=== PATIENT | male | born 1955 | race African-American/Black ===

== ENCOUNTER 2016-12-04 14:05 | Inpatient (IN) | payer MEDICARE, MEDICAID ==
[2016-12-04 14:35] LABS: #Basophils 0.1 thou/uL (0.0-0.2); #Eosinphils 0.1 thou/uL (0.0-0.7); #Lymphocytes 1.2 thou/uL (1.20-3.40); #Monocytes 0.5 thou/uL (0.11-0.59); #Neutrophils 3.5 thou/uL (1.40-6.50); %Basophils 1.8 % (0.0-1.0); %Eosinophils 1.4 % (0.0-10.0); %Lymphocytes 22.6 % (21.0-51.0); %Monocytes 9.3 % (0.0-10.0); Hematocrit 53.7 % (42.0-52.0); Mean Platelet Volume 8.7 fL (7.4-10.4); Red Blood Cell (RBC) Count 6.15 mill/uL (4.70-6.10); White Blood Cell (WBC) Count 5.5 thou/uL (4.8-10.8)
--- NOTE | 2016-12-04 14:38 | RAD ---
CHEST ONE VIEW: HISTORY: Chest pain. COMPARISON: 06/01/2014 FINDINGS: The cardiac silhouette is magnified by projection. The lungs remain hyperinflated with chronic pare nchymal and pleural scarring. The mediastinum is midline with aortic calcification. No lobar conso lidation or pneumothorax is apparent. The tracheostomy appliance is no longer visible. IMPRESSION: Chronic obstructive pulmonary disease and other chronic type findings appear stable. POS: [facility]
[2016-12-04 15:01] LABS: ALT (SGPT) 44 U/L (8-55); AST (SGOT) 39 U/L (5-34); Alkaline Phosphatase 116 U/L (40-150); Anion Gap 14 mmol/L (10-20); BUN (Urea Nitrogen) 16 mg/dL (8.4-25.7); Bilirubin, Total 0.8 mg/dL (0.2-1.2); CK (CPK) 44 U/L (30-200); Calc. Creatinine Clearance 0 mL/min (70-130); Calcium 10.2 mg/dL (7.8-10.44); Carbon Dioxide 25 mmol/L (22-29); Chloride 99 mmol/L (98-107); Estimated GFR-MDRD Greater than 90; Globulin 3.8 g/dL (2.4-3.5); Lipase 79 U/L (8-78); Protein, Total 7.3 g/dL (6.0-8.3)
[2016-12-04 15:05] LABS: Troponin I Less than 0.010 ng/mL (< 0.028)
[2016-12-04] MEDS ORDERED: ISOVUE-370 76%-LOCM 1 ML ONE (15:55)
[2016-12-04] MEDS ORDERED: Mag-Al 1200 mg/1200 mg/30 ML UDCUP ONE (16:02)
[2016-12-04] MEDS ORDERED: Famotidine 20 MG TAB ONE (16:02)
[2016-12-04] MEDS ORDERED: Lidocaine Viscous Sol 2% 15 ml UD Cup ONE (16:02)
--- NOTE | 2016-12-04 17:01 | CT ---
CT ABDOMEN AND PELVIS WITH IV CONTRAST: Date: 12/04/16 HISTORY: 61-year-old male with abdominal pain, epigastric pain. FINDINGS: There are calcified pleural plaques on the right, also seen on CT chest of 06/18/10. The liver demon strates decreased attenuation compared to the spleen consistent with fatty infiltration. A 9.0 mm hy perenhancing focus in the upper aspect of the right lobe of the liver is stable as well since the CT chest of 06/18/10. There is suggestion of multiple low density foci in the spleen which may be due to imaging in the la te arterial phase prior to equilibration and may be due to residual tiger striping. There are calcified gallstones. The pancreas, adrenal glands, and kidneys are normal. No free air, free fluid, or lymphadenopathy seen. There are vascular calcification without evidence of aneurysmal dilatation of the abdominal aorta. The small bowel loops are not abnormally dilated. There is fecal material in the colon and rectum. N o acute osseous abnormalities are seen. There is suggestion of old right iliac bone fracture. A normal appearing appendix is present. IMPRESSION: 1. Cholelithiasis. 2. Calcified right pleural plaques, stable since 2010. 3. Fatty liver. 4. Low density lesions versus normal enhancement pattern in spleen. Further evaluation with ultraso und would be helpful. 5. Cholelithiasis. 6. Constipation. POS: [facility]IYAD
[2016-12-04 18:03] LABS: Bilirubin Negative (Negative); Blood, Urine Negative (Negative); Glucose, Urine (Dipstick) 500 mg/dL (Negative); Ketone, Urine 15 mg/dL (Negative); Protein, Urine (Dipstick) Negative (Neg-Trace)
[2016-12-04 18:04] LABS: Amphetamine Not Detected (NotDetected); Methadone Not Detected (NotDetected); Methamphetamine Not Detected (NotDetected); Nitrite Negative (Negative)
[2016-12-04] MEDS ORDERED: cloNIDine HCl 0.1 MG TAB ONE (18:18)
--- NOTE | 2016-12-04 20:20 | HP ---
PRIMARY CARE PROVIDER: Dr. Rose at [facility]. CHIEF COMPLAINT: Referred to the [facility] Service for chest pain, rule out myocardial infa rction. HISTORY OF PRESENT ILLNESS: The patient had pain in his upper abdomen for 2 weeks present all the t jayant, worse with food. He has had nausea with emesis multiple times. No blood in the emesis, no kelechi ck tarry stools. PAST MEDICAL HISTORY: Pertinent for diabetes mellitus type 2, insulin-dependent, hypertension, COPD secondary to tobacco abuse, ongoing tobacco dependence, diabetes, history of CVA. PAST SURGICAL HISTORY: Tracheostomy post-CVA has been removed, history of cervical fracture. ALLERGIES: None. MEDICATIONS: The patient does not remember his medicines; however he brought his medicine list in w ith him, atorvastatin 10 mg a day, Cymbalta 30 mg a day, gabapentin 600 mg 3 times a day, glipizide 10 twice a day, insulin lispro 7 units subcu 3 times a day before meals, [facility], lisinopril 5 mg a day, metformin 1000 mg a day. ALLERGIES: No known drug allergies. SOCIAL HISTORY: Lives with daughter. Smokes less than a pack a day, occasional alcohol. FULL code status. Daughter, next of kin. FAMILY HISTORY: Positive for hypertension, diabetes, strokes, coronary artery disease and cancer. REVIEW OF SYSTEMS: General: He has frequent headaches for which he takes [id number] medicines. No dizziness or fainting, no fever or chills. Eyes: No double vision, blurred vision, flashing lights. ENT: No ear pain or drainage. No nasal bleeding. No trouble swallowing. Cardiac: No chest pain, orthopnea or paroxysmal nocturnal dyspnea. Respirations: No cough, wheezing or asthma. Gastrointestinal: See present illness. Genitourinary: No hematuria, dysuria. Musculoskeletal: N o pain or swelling in his legs. Neurologic: He states he has peripheral neuropathy, takes Cymbalta and gabapentin for that. Psychiatric: No anxiety, depression. Skin: No bruises, bleeding or emma h. Heme/Lymph: No tender or swollen lymph nodes in axilla, inguinal, or cervical area. PHYSICAL EXAMINATION: VITAL SIGNS: Blood pressure 146/99, pulse 86, respirations 14, pulse ox 99 on room air. HEENT: Pupils equal, round, and reactive to light. Extraocular movements are intact. Sclerae whit e. Tympanic membranes are clear. Nose clear. Throat is clear. He has only three or four teeth. NECK: Supple, without jugular venous distention. No adenopathy or thyromegaly. CHEST: Clear to auscultation and percussion. HEART: Regular rate and rhythm. First and second heart sounds are clear. There are no murmurs or gallops. ABDOMEN: Remarkably tender in the right upper quadrant. Bowel sounds are present. There is no pal pable mass or hepatosplenomegaly. There are no bruits. EXTREMITIES: Reveal no cyanosis, clubbing or edema. PULSES: Carotid, radial, femoral pulses intact. Pedal pulses diminished. SKIN: Warm and dry without bruises or rash. HEME/LYMPH: Reveals no tender or swollen lymph nodes in axilla, inguinal or cervical area. NEUROLOGICAL: Cranial nerves II-XII are intact. Deep tendon reflexes markedly diminished in his ar ms and absent in his legs. Sensation markedly diminished below the knee. LABORATORY AND X-RAY FINDINGS: Chest x-ray, no cardiomegaly, CHF or infiltrate. EKG no acute ST-T abnormality, sinus rhythm, both reviewed by me. LABORATORY DATA: Comprehensive metabolic profile, blood sugar 431, AST 39. Sodium 133, otherwise n ormal. Cardiac enzymes normal x1. CBC: White count 5.5, hemoglobin 17.4, platelet count 172,000. Drug screen is negative. ADMITTING DIAGNOSES: 1. Abdominal pain most consistent with cholecystitis. 2. Diabetes mellitus type 2, uncontrolled. 3. Hypertension. 4. Dyslipidemia. 5. History of chronic obstructive pulmonary disease. 6. Tobacco abuse. 7. Pain. PLAN: 1. Put in hospital on the medical service on IV fluids. 2. Morphine sulfate for pain. 3. Abdominal ultrasound. 4. Accu-Cheks and sliding scale, selected home medicines. Reevaluate when abdominal ultrasound is available.
[2016-12-04 21:12] LABS: Troponin I Less than 0.010 ng/mL (< 0.028)
[2016-12-04] MEDS ORDERED: Dextrose 5% in Water 1,000 ML IV PRN ×2 (21:37→23:20)
[2016-12-04] MEDS ORDERED: Labetalol HCl 100 MG/20 ML VIAL SLOW IVP PRN (21:37)
[2016-12-04] MEDS ORDERED: Dextrose 50% Abboject 50 ML SYRINGE SLOW IVP PRN (21:37)
[2016-12-04] MEDS ORDERED: Ondansetron ODT 4 MG TAB SL PRN (21:37)
[2016-12-04] MEDS ORDERED: Ondansetron HCl/PF 4 MG/2 ML Vial IVP PRN ×2 (21:37)
[2016-12-04] MEDS ORDERED: Acetaminophen 325 MG TAB PO PRN (21:37)
[2016-12-04] MEDS ORDERED: Zolpidem Tartrate 5 MG TAB PO PRN (21:37)
[2016-12-04] MEDS ORDERED: Famotidine/PF 20 mg/2ml Vial SLOW IVP PRN (21:37)
[2016-12-04] MEDS ORDERED: Famotidine/PF 20 mg/2ml Vial SLOW IVP SCH (23:15)
[2016-12-04] MEDS ORDERED: Dextrose 50% Abboject 50 ML SYRINGE IVP PRN (23:20)
[2016-12-04] MEDS ORDERED: HumaLOG 300 UNITS/3 ML VIAL SC PRN (23:20)
[2016-12-04] MEDS ORDERED: Atorvastatin Calcium 10 MG TAB PO SCH (23:30)
[2016-12-04] MEDS ORDERED: Sodium Chloride 0.9% 1,000 ML IV SCH (23:30)
[2016-12-05 00:08] LABS: Troponin I Less than 0.010 ng/mL (< 0.028)
[2016-12-05] MEDS: Sodium Chloride 0.9% 1,000 ML IV SCH ×2 (00:50→12:00)
[2016-12-05 05:20] LABS: #Basophils 0.1 thou/uL (0.0-0.2); #Eosinphils 0.1 thou/uL (0.0-0.7); #Lymphocytes 1.5 thou/uL (1.20-3.40); #Monocytes 0.4 thou/uL (0.11-0.59); #Neutrophils 2.4 thou/uL (1.40-6.50); %Basophils 1.3 % (0.0-1.0); %Eosinophils 1.5 % (0.0-10.0); %Lymphocytes 33.6 % (21.0-51.0); %Monocytes 8.8 % (0.0-10.0); Hematocrit 51.7 % (42.0-52.0); Mean Platelet Volume 9.1 fL (7.4-10.4); Red Blood Cell (RBC) Count 5.92 mill/uL (4.70-6.10); White Blood Cell (WBC) Count 4.4 thou/uL (4.8-10.8)
[2016-12-05] MEDS: HumaLOG 300 UNITS/3 ML VIAL SC PRN ×4 (05:25→20:15)
[2016-12-05 05:37] LABS: Anion Gap 12 mmol/L (10-20); BUN (Urea Nitrogen) 13 mg/dL (8.4-25.7); Calc. Creatinine Clearance 87 mL/min (70-130); Carbon Dioxide 26 mmol/L (22-29); Chloride 100 mmol/L (98-107); Estimated GFR-MDRD Greater than 90
--- NOTE | 2016-12-05 07:16 | PDOC.PN ---
- Subjective Encounter Start Date: 12/05/16 Encounter Start Time: 07:15 Subjective: Abdominal pain still severe -: No f/c -: No nausea currently - Objective Resuscitation Status: Resuscitation Status FULL:Full Resuscitation MAR Reviewed: Yes Vital Signs & Weight: Vital Signs (12 hours) Temp Pulse Resp BP Pulse Ox 12/05/16 04:06 98.2 F 82 18 152/98 H 99 12/05/16 00:05 98.7 F 89 20 159/91 H 95 12/04/16 21:37 95 12/04/16 21:20 98.1 F 82 18 157/100 H 96 Weight Weight 126 lb 8 oz I&O: 12/04/16 12/05/16 12/06/16 06:59 06:59 06:59 Intake Total 1150 Output Total 1400 Balance -250 Result Diagrams: 12/05/16 04:52 12/05/16 04:52 Additional Labs: Accuchecks 12/05/16 12/04/16 12/04/16 05:24 21:35 20:20 POC Glucose 290 H 387 H 225 H Phys Exam - Physical Examination Constitutional: NAD HEENT: moist MMs, sclera anicteric Neck: no nodes, no JVD Respiratory: no wheezing, no rales, no rhonchi Cardiovascular: RRR, no significant murmur generalized tenderness, no rebound, hyposonic BS Musculoskeletal: pulses present Neurological: non-focal Lymphatic: no nodes Psychiatric: normal affect Skin: no rash, normal turgor Dx/Plan (1) Abdominal pain Code(s): R10.9 - UNSPECIFIED ABDOMINAL PAIN Status: Acute - Plan Abdominal pain likely 2/2 Symptomatic Cholelithiasis * serial troponins unremarkable * CT a/p: cholelithiasis * CXR: no acute issues * Lipase: only minimally elevated * check US: pending * prn analagesics and anti-emetics * will request surgery consult to discuss possibility of cholecystectomy * check labs in AM
[2016-12-05] MEDS ORDERED: Famotidine/PF 20 mg/2ml Vial SLOW IVP SCH (09:00)
[2016-12-05] MEDS: Lisinopril 10 MG TAB PO SCH (09:42)
--- NOTE | 2016-12-05 09:52 | ULT ---
ULTRASOUND OF ABDOMEN: Date: 12/05/16 HISTORY: Epigastric pain. FINDINGS: The liver demonstrates homogeneous echotexture without focal mass or intrahepatic ductal dilatation. The spleen is normal, measuring 8.5 cm in length. There are multiple shadowing gallstones and sludg e in the gallbladder without gallbladder wall thickening or pericholecystic fluid. The common duct m easures 4.0 mm in diameter. The kidneys, pancreas, and visualized portions of the aorta and IVC are unremarkable. No free fluid is seen. IMPRESSION: Cholelithiasis. POS: [facility]IYAD
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
[2016-12-05] MEDS: Atorvastatin Calcium 10 MG TAB PO SCH (20:08)
[2016-12-05] MEDS ORDERED: Atorvastatin Calcium 10 MG TAB PO SCH (21:00)
[2016-12-06] MEDS: Sodium Chloride 0.9% 1,000 ML IV SCH ×4 (00:25→20:39)
[2016-12-06 05:32] LABS: #Eosinphils 0.1 thou/uL (0.0-0.7); #Lymphocytes 1.1 thou/uL (1.20-3.40); #Monocytes 0.4 thou/uL (0.11-0.59); #Neutrophils 2.7 thou/uL (1.40-6.50); %Basophils 1.1 % (0.0-1.0); %Eosinophils 1.6 % (0.0-10.0); %Lymphocytes 24.6 % (21.0-51.0); %Monocytes 9.9 % (0.0-10.0); Hematocrit 51.8 % (42.0-52.0); Mean Platelet Volume 9.4 fL (7.4-10.4); Red Blood Cell (RBC) Count 5.89 mill/uL (4.70-6.10); White Blood Cell (WBC) Count 4.3 thou/uL (4.8-10.8)
[2016-12-06 05:49] LABS: Anion Gap 12 mmol/L (10-20); BUN (Urea Nitrogen) 13 mg/dL (8.4-25.7); Calc. Creatinine Clearance 96 mL/min (70-130); Calcium 10.2 mg/dL (7.8-10.44); Carbon Dioxide 24 mmol/L (22-29); Chloride 105 mmol/L (98-107); Estimated GFR-MDRD Greater than 90; Magnesium 1.6 mg/dL (1.6-2.6)
[2016-12-06] MEDS ORDERED: Bupivacaine HCl 0.5%/Epinephrine 1:200,000/PF 30 ml Vial ONE (08:22)
[2016-12-06 08:44] LABS: ALT (SGPT) 40 U/L (8-55); AST (SGOT) 48 U/L (5-34); Alkaline Phosphatase 118 U/L (40-150); Bilirubin, Direct 0.3 mg/dL (0.1-0.3); Bilirubin, Total 0.6 mg/dL (0.2-1.2); Protein, Total 6.9 g/dL (6.0-8.3)
[2016-12-06] MEDS ORDERED: Fentanyl 100 MCG/2 ML VIAL ONE (08:50)
[2016-12-06] MEDS ORDERED: Ondansetron HCl/PF 4 MG/2 ML Vial ONE (09:15)
[2016-12-06] MEDS ORDERED: Lidocaine 2% PF 10 ML AMP (For Epidural Use) ONE (09:15)
[2016-12-06] MEDS ORDERED: Glycopyrrolate 0.2 MG/ML 5 ML SYRINGE ONE (09:15)
[2016-12-06] MEDS ORDERED: Propofol 200 MG/20 ML VIAL ONE (09:15)
[2016-12-06] MEDS ORDERED: cloNIDine HCl 0.1 MG TAB PO PRN (10:01)
--- NOTE | 2016-12-06 10:50 | OP ---
DATE OF OPERATION: 12/06/2016 PREOPERATIVE DIAGNOSES: Acute cholecystitis and cholelithiasis. POSTOPERATIVE DIAGNOSES: Acute cholecystitis and cholelithiasis. PROCEDURE PERFORMED: Laparoscopic cholecystectomy. SURGEON: Rickie Severino D.O. ANESTHESIA: General endotracheal. ESTIMATED BLOOD LOSS: 10 mL. FLUIDS GIVEN: 1000 mL crystalloids. SPONGE AND INSTRUMENT COUNT: Certified as correct x2. COMPLICATIONS: None apparent at time of operation. INDICATIONS FOR PROCEDURE: This is a 61-year-old man who presented with postprandial epigastric abd ominal pain. Clinical and radiographic examination was consistent with acute cholecystitis with cho lelithiasis for which patient was brought to the operating room for laparoscopic cholecystectomy. Findings are consistent with gallbladder in the usual anatomic location partially encased by omental adhesions. DESCRIPTION OF PROCEDURE: Informed consent obtained from the patient who was brought to the operati ng room and placed in supine position. Following general anesthesia, abdomen is sterilely prepped a nd draped in the usual fashion. The skin below the umbilicus was infiltrated with 0.25% Marcaine wi th epinephrine. A small curvilinear infraumbilical incision is made using an 11 scalpel. An umbili jimmie stalk was grasped with Jaquelin's and elevated. Veress needle was inserted through this incision and placed in the peritoneal cavity through which the abdomen was insufflated with 2.5 liters of CO2 gas. Intra-abdominal pressure noted at 1 mmHg. Following abdominal insufflation, Veress needle wa s removed and a 5 mm trocar was introduced into the peritoneal cavity using the Visiport under lapar oscopy. Laparoscopy further reveals gallbladder in the usual anatomic location partially encased by omental adhesions. Under direct laparoscopy, a 12 mm epigastric and two 5 mm right lateral subcost al ports were placed after the overlying skin was infiltrated with 0.25% Marcaine with epinephrine a nd appropriate incisions made. The patient was placed in a reverse Trendelenburg position, rotated to his left. I introduced a Prestige grasper through the right lateral subcostal port grasping the fundus of the gallbladder which was elevated cephalad. Omental adhesions were then taken down from the gallbladder using [place] dissector with cautery. A second Prestige grasper introduced through the right medial subcostal port grasping the Cain's pouch which was retracted laterally. Cysti c duct was carefully dissected free from surrounding structures and divided between clips. Two clip s were applied proximally and one clip at the junction of the cystic duct and gallbladder. Cystic a rtery was also dissected free from surrounding structures and divided between clips in a similar fas hion. Gallbladder itself was removed from the liver bed using thermal cautery with good hemostasis. Gallbladder is delivered of the abdominal cavity using an EndoCatch. Operative site was inspected for good hemostasis. Clips remained in place, no bile stains noted. Finding no other pathology, l aparoscopy was terminated. Fascia of the epigastric port site was closed using 0 Vicryl suture and Endo closure device under laparoscopy. The abdomen was desufflated. All ports and instruments yuliya yesy and accounted for. Skin incisions were closed using 4-0 Monocryl suture in subcuticular fashion . Dermabond was applied to the incisions. The patient tolerated the operation without any apparent complication and was returned to the recovery room in satisfactory condition.
[2016-12-06] MEDS: Lisinopril 10 MG TAB PO SCH (11:23)
[2016-12-06] MEDS: Ketorolac Tromethamine 30 MG/ML VIAL IVP SCH ×3 (11:23→23:30)
[2016-12-06] MEDS: Acetaminophen 500 MG TAB PO SCH ×3 (11:27→23:30)
[2016-12-06] MEDS: traMADol HCl 50 MG TAB PO PRN ×2 (14:25→20:33)
[2016-12-06] MEDS: Gabapentin 300 MG CAP PO SCH ×2 (14:27→20:33)
--- NOTE | 2016-12-06 15:21 | PDOC.PN ---
- Subjective Encounter Start Date: 12/06/16 Encounter Start Time: 15:20 Subjective: s/p lap britney. ate food and no nausea.no Abd pain -: feels better - Objective Resuscitation Status: Resuscitation Status FULL:Full Resuscitation MAR Reviewed: Yes Vital Signs & Weight: Vital Signs (12 hours) Temp Pulse Resp BP BP Pulse Ox 12/06/16 12:00 97.3 F L 83 12 150/97 H 98 12/06/16 11:23 181/106 H 12/06/16 08:20 97.3 F L 83 12 97 12/06/16 08:00 97.7 F 85 16 162/100 H 97 12/06/16 05:03 82 130/71 12/06/16 03:45 98.1 F 90 16 141/91 H 98 Weight Admit Weight 126 lb 5 oz Weight 127 lb 8 oz I&O: 12/05/16 12/06/16 12/07/16 06:59 06:59 06:59 Intake Total 1150 3687 250 Output Total 1400 2050 Balance -250 1637 250 Result Diagrams: 12/06/16 04:54 12/06/16 04:54 Additional Labs: Accuchecks 12/06/16 12/06/16 12/05/16 11:18 05:41 20:13 POC Glucose 229 H 242 H 399 H 12/05/16 17:01 POC Glucose 327 H Laboratory Tests 12/04/16 12/04/16 12/04/16 14:26 14:26 20:34 Total Bilirubin 0.8 AST 39 H ALT 44 Alkaline Phosphatase 116 Troponin I Less than 0.010 Less than 0.010 Lipase 79 H 12/04/16 12/06/16 23:33 04:54 Total Bilirubin 0.6 AST 48 H ALT 40 Alkaline Phosphatase 118 Troponin I Less than 0.010 Lipase Phys Exam - Physical Examination Constitutional: NAD HEENT: PERRLA, moist MMs, sclera anicteric, oral pharynx no lesions, 2+ tonsils Neck: no nodes, no JVD, supple, full ROM Respiratory: no wheezing, no rales, no rhonchi, clear to auscultation bilateral Cardiovascular: RRR, no significant murmur Gastrointestinal: soft, non-tender, positive bowel sounds mild distension. surgical site w/o oozing Musculoskeletal: no edema, pulses present Neurological: non-focal, normal sensation, moves all 4 limbs Dx/Plan (1) Acute cholecystitis Code(s): K81.0 - ACUTE CHOLECYSTITIS Status: Acute Comment: s/p lap britney (2) LFTs abnormal Code(s): R79.89 - OTHER SPECIFIED ABNORMAL FINDINGS OF BLOOD CHEMISTRY Status : Acute Comment: Improving. secondary to cholelithaisis (3) Abdominal pain Code(s): R10.9 - UNSPECIFIED ABDOMINAL PAIN Status: Acute - Plan out of bed/ambulate, DVT proph w/SCDs supportive care post-op.ambulate .encourage Po intake -: likley home tomorrow if cleared by GS team.apprecviate input. -: LFt improving. -: restart home meds. Hemodynamically stable. * . Review of Systems - Medications/Allergies Allergies/Adverse Reactions: Allergies Allergy/AdvReac Type Severity Reaction Status Date / Time No Known Drug Allergies Allergy Verified 12/04/16 22:10 Medications: Current Medications Acetaminophen (Tylenol) 1,000 mg PO Q6H [facility] Last Admin: 12/06/16 11:27 Dose: 1,000 mg Atorvastatin Calcium (Lipitor) 10 mg PO HS [facility] Last Admin: 12/05/16 20:08 Dose: 10 mg Bupropion HCl (Wellbutrin Xl) 150 mg PO DAILY [facility] Citalopram Hydrobromide (Celexa) 20 mg PO DAILY [facility] Clonidine HCl (Catapres) 0.1 mg PO Q4H PRN PRN Reason: SBP>160 Dextrose/Water (Dextrose 50%) 25 gm SLOW IVP PRN PRN PRN Reason: Hypoglycemia Famotidine (Pepcid) 20 mg SLOW IVP Q12HR PRN PRN Reason: Heartburn or Indigestion Gabapentin (Neurontin) 600 mg PO TID [facility] Last Admin: 12/06/16 14:27 Dose: 600 mg Glucagon (Glucagon) 1 mg IM PRN PRN PRN Reason: Hypoglycemia Hydralazine HCl (Apresoline) 10 mg SLOW IVP Q4H PRN PRN Reason: Systolic BP > 170 Dextrose/Water (D5w) 1,000 mls @ 0 mls/hr IV .Q0M PRN; As Directed PRN Reason: Hypoglycemia Sodium Chloride (Normal Saline 0.9%) 1,000 mls @ 75 mls/hr IV .[id number] [facility] Last Admin: 12/06/16 12:17 Dose: Not Given Insulin Human Lispro (Humalog) 0 units SC .MODERATE SLIDING SC PRN PRN Reason: Moderate Correctional Scale Last Admin: 12/05/16 20:15 Dose: 10 unit Ketorolac Tromethamine (Toradol) 15 mg IVP Q6HR [facility] Stop: 12/11/16 12:01 Last Admin: 12/06/16 11:23 Dose: 15 mg Labetalol HCl (Normodyne) 20 mg SLOW IVP Q4H PRN PRN Reason: Systolic BP > 180 Lisinopril (Zestril) 10 mg PO DAILY [facility] Last Admin: 12/06/16 11:23 Dose: 10 mg Ondansetron HCl (Zofran) 4 mg IVP Q6H PRN PRN Reason: Nausea/Vomiting Sodium Chloride (Flush - Normal Saline) 10 ml IVF Q12HR [facility] Last Admin: 12/06/16 11:27 Dose: 10 ml Sodium Chloride (Flush - Normal Saline) 10 ml IVF PRN PRN PRN Reason: Saline Flush Tramadol HCl (Ultram) 50 mg PO Q6H PRN PRN Reason: Moderate Pain (4-6) Tramadol HCl (Ultram) 100 mg PO Q6H PRN PRN Reason: Severe Pain (7-10) Last Admin: 12/06/16 14:25 Dose: 100 mg Zolpidem Tartrate (Ambien) 5 mg PO HSPRN PRN PRN Reason: Insomnia
[2016-12-06] MEDS: HumaLOG 300 UNITS/3 ML VIAL SC PRN ×2 (17:12→21:35)
[2016-12-06] MEDS: Atorvastatin Calcium 10 MG TAB PO SCH (20:33)
[2016-12-07] MEDS: traMADol HCl 50 MG TAB PO PRN ×3 (03:05→22:40)
[2016-12-07] MEDS ORDERED: Morphine Sulfate 2 MG/ML SYRINGE SLOW IVP SCH (03:30)
[2016-12-07 04:46] LABS: #Lymphocytes 0.9 thou/uL (1.20-3.40); #Monocytes 0.5 thou/uL (0.11-0.59); %Basophils 0.5 % (0.0-1.0); %Eosinophils 1.1 % (0.0-10.0); %Lymphocytes 20.3 % (21.0-51.0); %Monocytes 11.5 % (0.0-10.0); Hematocrit 49.3 % (42.0-52.0); Red Blood Cell (RBC) Count 5.55 mill/uL (4.70-6.10); White Blood Cell (WBC) Count 4.4 thou/uL (4.8-10.8)
[2016-12-07 05:09] LABS: Anion Gap 12 mmol/L (10-20); BUN (Urea Nitrogen) 17 mg/dL (8.4-25.7); Calc. Creatinine Clearance 83 mL/min (70-130); Calcium 9.4 mg/dL (7.8-10.44); Carbon Dioxide 23 mmol/L (22-29); Chloride 103 mmol/L (98-107); Estimated GFR-MDRD Greater than 90
[2016-12-07 05:11] LABS: ALT (SGPT) 44 U/L (8-55); AST (SGOT) 61 U/L (5-34); Alkaline Phosphatase 115 U/L (40-150); Bilirubin, Direct 0.3 mg/dL (0.1-0.3); Bilirubin, Total 0.6 mg/dL (0.2-1.2); Lipase 89 U/L (8-78); Protein, Total 6.3 g/dL (6.0-8.3)
[2016-12-07] MEDS: Ketorolac Tromethamine 30 MG/ML VIAL IVP SCH (06:23)
[2016-12-07] MEDS: HumaLOG 300 UNITS/3 ML VIAL SC PRN (06:24)
[2016-12-07] MEDS: Acetaminophen 500 MG TAB PO SCH ×4 (06:24→22:37)
[2016-12-07] MEDS ORDERED: Dextrose 5% in Water 1,000 ML IV PRN (07:10)
[2016-12-07] MEDS ORDERED: Dextrose 50% Abboject 50 ML SYRINGE SLOW IVP PRN (07:10)
[2016-12-07] MEDS ORDERED: Morphine Sulfate 2 MG/ML SYRINGE SLOW IVP PRN (08:36)
[2016-12-07] MEDS: Gabapentin 300 MG CAP PO SCH ×3 (09:37→20:31)
[2016-12-07] MEDS: Bupropion 150 MG XL TAB PO SCH (09:37)
[2016-12-07] MEDS: Lisinopril 10 MG TAB PO SCH (09:37)
[2016-12-07] MEDS ORDERED: Bisacodyl 10 MG SUPP PR PRN (09:44)
[2016-12-07] MEDS ORDERED: Docusate 100 MG CAP PO PRN (09:44)
[2016-12-07 10:42] VITALS: BMI 19.5
--- NOTE | 2016-12-07 11:38 | RAD ---
ABDOMEN ONE VIEW: History: Status post cholecystectomy. Evaluate for hematoma versus ileus. Comparison: None. Correlation: Abdomen and pelvis CT 12-04-16. FINDINGS: Re-demonstration of fecal material and air in a nondistended, nondilated colon. No evidence of small bowel distention or dilatation. Air filled mildly prominent stomach is noted in the supine projecti on. No evidence of pneumoperitoneum. Surgical clips, compatible with previous cholecystectomy are id entified. Phleboliths are noted. Increased density in the pelvis is presumed to be due to urine filled urinary bladder. Correlate cli nically. IMPRESSION: No specific bowel gas pattern. POS: [facility]
[2016-12-07] MEDS: Insulin Regular 300 UNITS/3 ML VIAL SC PRN ×3 (11:46→20:32)
[2016-12-07] MEDS: Milk Of Magnesia 30 ML UDCUP PO PRN (11:47)
--- NOTE | 2016-12-07 12:05 | PDOC.PN ---
- Subjective Encounter Start Date: 12/07/16 Encounter Start Time: 12:03 Subjective: c/o 10/10 abdominal pain since last night.not passing gas since this mornin -: no nausea/vomiting. ATE good. -: reports that he has BM once a month on a normal basis - Objective Resuscitation Status: Resuscitation Status FULL:Full Resuscitation MAR Reviewed: Yes Vital Signs & Weight: Vital Signs (12 hours) Temp Pulse Resp BP BP BP Pulse Ox 12/07/16 11:58 97.4 F L 80 18 142/95 H 100 12/07/16 09:37 120/84 12/07/16 08:00 97.5 F L 87 16 99 12/07/16 07:45 97.5 F L 87 16 120/84 99 12/07/16 03:25 97.8 F 86 14 149/99 H 96 Weight Admit Weight 126 lb 5 oz Weight 131 lb 15.993 oz I&O: 12/06/16 12/07/16 12/08/16 06:59 06:59 06:59 Intake Total 3687 4426 250 Output Total 2050 550 Balance 1637 3876 250 Result Diagrams: 12/07/16 04:14 12/07/16 04:14 Additional Labs: Accuchecks 12/07/16 12/07/16 12/06/16 11:11 05:49 20:43 POC Glucose 280 H 262 H 257 H 12/06/16 16:46 POC Glucose 223 H Laboratory Tests 12/04/16 12/06/16 12/07/16 14:26 04:54 04:14 Total Bilirubin 0.8 0.6 0.6 AST 39 H 48 H 61 H ALT 44 40 44 Alkaline Phosphatase 116 118 115 Lipase 79 H 89 H Radiology Reviewed by me: Yes (KUB-no obstruction) Phys Exam - Physical Examination Constitutional: NAD HEENT: PERRLA, moist MMs, sclera anicteric, oral pharynx no lesions Neck: no nodes, no JVD, supple, full ROM Respiratory: no wheezing, no rales, no rhonchi Cardiovascular: RRR, no significant murmur Gastrointestinal: soft, positive bowel sounds swelling at one of the surgical sites w overt bleeding Musculoskeletal: no edema, pulses present Neurological: non-focal, normal sensation, moves all 4 limbs Psychiatric: normal affect, A&O x 3 Skin: no rash Dx/Plan (1) Surgical site hematoma Status: Acute (2) Acute cholecystitis Code(s): K81.0 - ACUTE CHOLECYSTITIS Status: Acute Comment: s/p lap britney (3) LFTs abnormal Code(s): R79.89 - OTHER SPECIFIED ABNORMAL FINDINGS OF BLOOD CHEMISTRY Status : Acute Comment: Improving. secondary to cholelithaisis (4) Abdominal pain Code(s): R10.9 - UNSPECIFIED ABDOMINAL PAIN Status: Acute - Plan DVT proph w/SCDs KUB negative for Obstruction.will add laxatives.ambulate -: GS notified of hematoma. watch H/H.abdominal binder -: [place] DC home tomorrow if hematoma stable. * . Review of Systems - Review of Systems Constitutional: negative: Fever, Chills, Sweats, Weakness, Malaise, Other Respiratory: negative: Cough, Dry, Shortness of Breath, Hemoptysis, SOB with Excertion, Pleuritic Pain, Sputum, Wheezing Cardiovascular: negative: Chest Pain, Palpitations, Orthopnea, Paroxysmal Noc. Dyspnea, Edema, Light Headedness, Other Gastrointestinal: Abdominal Pain, Other. negative: Nausea, Vomiting, Diarrhea, Constipation, Melena, Hematochezia Genitourinary: negative: Dysuria, Frequency, Incontinence, Hematuria, Retention , Other Musculoskeletal: negative: Neck Pain, Shoulder Pain, Arm Pain, Back Pain, Hand Pain, Leg Pain, Foot Pain, Other Neurological: negative: Weakness, Numbness, Incoordination, Change in Speech, Confusion, Seizures, Other - Medications/Allergies Allergies/Adverse Reactions: Allergies Allergy/AdvReac Type Severity Reaction Status Date / Time No Known Drug Allergies Allergy Verified 12/04/16 22:10 Medications: Current Medications Acetaminophen (Tylenol) 1,000 mg PO Q6H [facility] Last Admin: 12/07/16 11:38 Dose: 1,000 mg Atorvastatin Calcium (Lipitor) 10 mg PO HS [facility] Last Admin: 12/06/16 20:33 Dose: 10 mg Bisacodyl (Dulcolax) 10 mg CA DAILYPRN PRN PRN Reason: Constipation Bupropion HCl (Wellbutrin Xl) 150 mg PO DAILY [facility] Last Admin: 12/07/16 09:37 Dose: 150 mg Citalopram Hydrobromide (Celexa) 20 mg PO DAILY [facility] Last Admin: 12/07/16 09:38 Dose: 20 mg Clonidine HCl (Catapres) 0.1 mg PO Q4H PRN PRN Reason: SBP>160 Dextrose/Water (Dextrose 50%) 25 gm SLOW IVP PRN PRN PRN Reason: Hypoglycemia Docusate Sodium (Colace) 100 mg PO BIDPRN PRN PRN Reason: Constipation Famotidine (Pepcid) 20 mg SLOW IVP Q12HR PRN PRN Reason: Heartburn or Indigestion Gabapentin (Neurontin) 600 mg PO TID [facility] Last Admin: 12/07/16 09:37 Dose: 600 mg Glucagon (Glucagon) 1 mg IM PRN PRN PRN Reason: Hypoglycemia Hydralazine HCl (Apresoline) 10 mg SLOW IVP Q4H PRN PRN Reason: Systolic BP > 170 Sodium Chloride (Normal Saline 0.9%) 1,000 mls @ 75 mls/hr IV .[id number] [facility] Last Admin: 12/06/16 20:39 Dose: 1,000 mls Dextrose/Water (D5w) 1,000 mls @ 0 mls/hr IV .Q0M PRN; As Directed PRN Reason: Hypoglycemia Insulin Human Regular (Humulin R) 0 units SC .AGGRESSIVE SLIDING PRN PRN Reason: Aggressive Sliding Scale Last Admin: 12/07/16 11:46 Dose: 9 unit Labetalol HCl (Normodyne) 20 mg SLOW IVP Q4H PRN PRN Reason: Systolic BP > 180 Lisinopril (Zestril) 10 mg PO DAILY [facility] Last Admin: 12/07/16 09:37 Dose: 10 mg Magnesium Hydroxide (Milk Of Magnesium) 30 ml PO DAILYPRN PRN PRN Reason: Constipation Last Admin: 12/07/16 11:47 Dose: 30 ml Morphine Sulfate (Morphine Sulfate) 2 mg SLOW IVP Q4H PRN PRN Reason: Severe Pain (7-10) Last Admin: 12/07/16 09:34 Dose: 2 mg Ondansetron HCl (Zofran) 4 mg IVP Q6H PRN PRN Reason: Nausea/Vomiting Sodium Chloride (Flush - Normal Saline) 10 ml IVF Q12HR [facility] Last Admin: 12/07/16 10:24 Dose: Not Given Sodium Chloride (Flush - Normal Saline) 10 ml IVF PRN PRN PRN Reason: Saline Flush Tramadol HCl (Ultram) 50 mg PO Q6H PRN PRN Reason: Moderate Pain (4-6) Tramadol HCl (Ultram) 100 mg PO Q6H PRN PRN Reason: Severe Pain (7-10) Last Admin: 12/07/16 03:05 Dose: 100 mg Zolpidem Tartrate (Ambien) 5 mg PO HSPRN PRN PRN Reason: Insomnia
[2016-12-07] MEDS: Sodium Chloride 0.9% 1,000 ML IV SCH (16:17)
[2016-12-07] MEDS: Atorvastatin Calcium 10 MG TAB PO SCH (20:31)
[2016-12-08] MEDS: Insulin Regular 300 UNITS/3 ML VIAL SC PRN ×3 (05:03→18:21)
[2016-12-08] MEDS: Acetaminophen 500 MG TAB PO SCH ×4 (05:04→23:10)
[2016-12-08 05:39] LABS: #Eosinphils 0.1 thou/uL (0.0-0.7); #Monocytes 0.6 thou/uL (0.11-0.59); #Neutrophils 3.1 thou/uL (1.40-6.50); %Basophils 0.6 % (0.0-1.0); %Eosinophils 1.7 % (0.0-10.0); %Lymphocytes 21.5 % (21.0-51.0); %Monocytes 12.1 % (0.0-10.0); Mean Platelet Volume 9.6 fL (7.4-10.4); Red Blood Cell (RBC) Count 5.27 mill/uL (4.70-6.10); White Blood Cell (WBC) Count 4.8 thou/uL (4.8-10.8)
[2016-12-08] MEDS: Sodium Chloride 0.9% 1,000 ML IV SCH ×2 (05:50→17:50)
[2016-12-08] MEDS: Bupropion 150 MG XL TAB PO SCH (07:51)
[2016-12-08] MEDS: Gabapentin 300 MG CAP PO SCH ×3 (07:51→20:20)
[2016-12-08] MEDS: Lisinopril 10 MG TAB PO SCH (07:51)
[2016-12-08] MEDS: traMADol HCl 50 MG TAB PO PRN ×2 (07:52→16:28)
[2016-12-08] MEDS: Senokot S 8.6-50 MG TAB PO SCH ×2 (08:55→20:20)
[2016-12-08] MEDS: Polyethylene Glycol 3350 17 GM Packet PO SCH (08:56)
--- NOTE | 2016-12-08 10:10 | PDOC.PN ---
- Subjective Encounter Start Date: 12/08/16 Encounter Start Time: 10:09 Subjective: still with abdominal pain.no BM yet. -: no more bleeding from surgical site - Objective Resuscitation Status: Resuscitation Status FULL:Full Resuscitation MAR Reviewed: Yes Vital Signs & Weight: Vital Signs (12 hours) Temp Pulse Resp BP BP BP Pulse Ox 12/08/16 08:41 99 12/08/16 08:05 97.8 F 92 12 12/08/16 07:51 120/84 12/08/16 07:17 97.8 F 92 12 136/92 H 98 12/08/16 04:51 97.9 F 91 16 166/102 H 98 Weight Admit Weight 126 lb 5 oz Weight 135 lb 3.2 oz I&O: 12/07/16 12/08/16 12/09/16 06:59 06:59 06:59 Intake Total 4426 1630 Output Total 550 Balance 3876 1630 Result Diagrams: 12/08/16 04:59 12/07/16 04:14 Additional Labs: Accuchecks 12/08/16 12/07/16 12/07/16 05:01 20:31 17:26 POC Glucose 308 H 330 H 280 H 12/07/16 11:11 POC Glucose 280 H Phys Exam - Physical Examination Constitutional: NAD HEENT: PERRLA, moist MMs, sclera anicteric, oral pharynx no lesions Neck: no nodes, no JVD, supple, full ROM Respiratory: no wheezing, no rales, no rhonchi, clear to auscultation bilateral Cardiovascular: RRR, no significant murmur Gastrointestinal: soft, non-tender, positive bowel sounds distension Musculoskeletal: no edema, pulses present Neurological: non-focal, normal sensation, moves all 4 limbs Psychiatric: normal affect, A&O x 3 Skin: no rash Dx/Plan (1) Surgical site hematoma Status: Acute Comment: Stable (2) Acute cholecystitis Code(s): K81.0 - ACUTE CHOLECYSTITIS Status: Acute Comment: s/p lap britney (3) LFTs abnormal Code(s): R79.89 - OTHER SPECIFIED ABNORMAL FINDINGS OF BLOOD CHEMISTRY Status : Acute Comment: Improving. secondary to cholelithaisis (4) Abdominal pain Code(s): R10.9 - UNSPECIFIED ABDOMINAL PAIN Status: Acute - Plan out of bed/ambulate, DVT proph w/SCDs Hemodynamically stable.GS following. -: likley home w HH today if BM . -: no nausea/vomiting.No obstruction on KUB. * . Review of Systems - Review of Systems Constitutional: negative: Fever, Chills, Sweats, Weakness, Malaise, Other Respiratory: negative: Cough, Dry, Shortness of Breath, Hemoptysis, SOB with Excertion, Pleuritic Pain, Sputum, Wheezing Cardiovascular: negative: Chest Pain, Palpitations, Orthopnea, Paroxysmal Noc. Dyspnea, Edema, Light Headedness, Other Gastrointestinal: negative: Nausea, Vomiting, Abdominal Pain, Diarrhea, Constipation, Melena, Hematochezia, Other Genitourinary: negative: Dysuria, Frequency, Incontinence, Hematuria, Retention , Other Musculoskeletal: negative: Neck Pain, Shoulder Pain, Arm Pain, Back Pain, Hand Pain, Leg Pain, Foot Pain, Other Neurological: negative: Weakness, Numbness, Incoordination, Change in Speech, Confusion, Seizures, Other - Medications/Allergies Allergies/Adverse Reactions: Allergies Allergy/AdvReac Type Severity Reaction Status Date / Time No Known Drug Allergies Allergy Verified 12/04/16 22:10 Medications: Current Medications Acetaminophen (Tylenol) 1,000 mg PO Q6H [facility] Last Admin: 12/08/16 05:04 Dose: Not Given Atorvastatin Calcium (Lipitor) 10 mg PO HS [facility] Last Admin: 12/07/16 20:31 Dose: 10 mg Bisacodyl (Dulcolax) 10 mg [place] DAILYPRN PRN PRN Reason: Constipation Bupropion HCl (Wellbutrin Xl) 150 mg PO DAILY [facility] Last Admin: 12/08/16 07:51 Dose: 150 mg Citalopram Hydrobromide (Celexa) 20 mg PO DAILY [facility] Last Admin: 12/08/16 07:52 Dose: 20 mg Clonidine HCl (Catapres) 0.1 mg PO Q4H PRN PRN Reason: SBP>160 Dextrose/Water (Dextrose 50%) 25 gm SLOW IVP PRN PRN PRN Reason: Hypoglycemia Docusate Sodium (Colace) 100 mg PO BIDPRN PRN PRN Reason: Constipation Last Admin: 12/07/16 14:07 Dose: 100 mg Famotidine (Pepcid) 20 mg SLOW IVP Q12HR PRN PRN Reason: Heartburn or Indigestion Gabapentin (Neurontin) 600 mg PO TID [facility] Last Admin: 12/08/16 07:51 Dose: 600 mg Glucagon (Glucagon) 1 mg IM PRN PRN PRN Reason: Hypoglycemia Hydralazine HCl (Apresoline) 10 mg SLOW IVP Q4H PRN PRN Reason: Systolic BP > 170 Sodium Chloride (Normal Saline 0.9%) 1,000 mls @ 75 mls/hr IV .[id number] [facility] Last Admin: 12/08/16 05:50 Dose: Not Given Dextrose/Water (D5w) 1,000 mls @ 0 mls/hr IV .Q0M PRN; As Directed PRN Reason: Hypoglycemia Insulin Human Regular (Humulin R) 0 units SC .AGGRESSIVE SLIDING PRN PRN Reason: Aggressive Sliding Scale Last Admin: 12/08/16 05:03 Dose: 11 unit Labetalol HCl (Normodyne) 20 mg SLOW IVP Q4H PRN PRN Reason: Systolic BP > 180 Lisinopril (Zestril) 10 mg PO DAILY [facility] Last Admin: 12/08/16 07:51 Dose: 10 mg Magnesium Hydroxide (Milk Of Magnesium) 30 ml PO DAILYPRN PRN PRN Reason: Constipation Last Admin: 12/07/16 11:47 Dose: 30 ml Morphine Sulfate (Morphine Sulfate) 2 mg SLOW IVP Q4H PRN PRN Reason: Severe Pain (7-10) Last Admin: 12/07/16 15:23 Dose: 2 mg Ondansetron HCl (Zofran) 4 mg IVP Q6H PRN PRN Reason: Nausea/Vomiting Polyethylene Glycol (Miralax) 17 gm PO DAILY [facility] Last Admin: 12/08/16 08:56 Dose: 17 gm Senna/Docusate Sodium (Senokot S) 2 tab PO BID [facility] Last Admin: 12/08/16 08:55 Dose: 2 tab Sodium Chloride (Flush - Normal Saline) 10 ml IVF Q12HR [facility] Last Admin: 12/08/16 07:52 Dose: 10 ml Sodium Chloride (Flush - Normal Saline) 10 ml IVF PRN PRN PRN Reason: Saline Flush Tramadol HCl (Ultram) 50 mg PO Q6H PRN PRN Reason: Moderate Pain (4-6) Last Admin: 12/08/16 07:52 Dose: 50 mg Tramadol HCl (Ultram) 100 mg PO Q6H PRN PRN Reason: Severe Pain (7-10) Last Admin: 12/07/16 14:07 Dose: 100 mg Zolpidem Tartrate (Ambien) 5 mg PO HSPRN PRN PRN Reason: Insomnia
[2016-12-08] MEDS: Milk Of Magnesia 30 ML UDCUP PO PRN (16:27)
[2016-12-08] MEDS: Atorvastatin Calcium 10 MG TAB PO SCH (20:20)
[2016-12-08] MEDS: Famotidine 20 MG TAB PO SCH (20:20)
[2016-12-09 05:11] LABS: #Eosinphils 0.1 thou/uL (0.0-0.7); #Lymphocytes 1.2 thou/uL (1.20-3.40); #Monocytes 0.5 thou/uL (0.11-0.59); #Neutrophils 2.7 thou/uL (1.40-6.50); %Eosinophils 1.7 % (0.0-10.0); %Lymphocytes 26.6 % (21.0-51.0); %Monocytes 11.6 % (0.0-10.0); Hematocrit 46.9 % (42.0-52.0); Mean Platelet Volume 8.9 fL (7.4-10.4); Red Blood Cell (RBC) Count 5.26 mill/uL (4.70-6.10); White Blood Cell (WBC) Count 4.6 thou/uL (4.8-10.8)
[2016-12-09] MEDS: Acetaminophen 500 MG TAB PO SCH ×3 (05:13→16:40)
[2016-12-09] MEDS: Insulin Regular 300 UNITS/3 ML VIAL SC PRN ×2 (05:14→12:25)
[2016-12-09] MEDS ORDERED: Bisacodyl 10 MG SUPP PR SCH (08:15)
[2016-12-09] MEDS: Lisinopril 10 MG TAB PO SCH (09:15)
[2016-12-09] MEDS: Gabapentin 300 MG CAP PO SCH ×2 (09:15→16:38)
[2016-12-09] MEDS: Senokot S 8.6-50 MG TAB PO SCH (09:15)
[2016-12-09] MEDS: Bupropion 150 MG XL TAB PO SCH (09:15)
[2016-12-09] MEDS: Famotidine 20 MG TAB PO SCH (09:15)
[2016-12-09] MEDS: Polyethylene Glycol 3350 17 GM Packet PO SCH (09:16)
[2016-12-09] MEDS: Sodium Chloride 0.9% 1,000 ML IV SCH (09:30)
--- NOTE | 2016-12-09 12:04 | PDOC.PN ---
- Subjective Encounter Start Date: 12/09/16 Encounter Start Time: 12:02 Subjective: small BM this am but still w abd pain.no N/V/D -: feels better overall - Objective Resuscitation Status: Resuscitation Status FULL:Full Resuscitation MAR Reviewed: Yes Vital Signs & Weight: Vital Signs (12 hours) Temp Pulse Resp BP BP BP Pulse Ox 12/09/16 11:28 97.7 F 91 16 131/88 94 L 12/09/16 09:15 151/97 H 12/09/16 08:00 98.4 F 92 16 99 12/09/16 07:49 100 12/09/16 07:35 98.4 F 92 16 151/97 H 99 12/09/16 03:55 98.2 F 91 20 152/95 H 94 L 12/09/16 00:10 158/95 H Weight Admit Weight 126 lb 5 oz Weight 130 lb 8 oz I&O: 12/08/16 12/09/16 12/10/16 06:59 06:59 06:59 Intake Total 1630 700 Balance 1630 700 Result Diagrams: 12/09/16 04:46 12/07/16 04:14 Additional Labs: Accuchecks 12/09/16 12/09/16 12/08/16 11:15 05:14 21:22 POC Glucose 318 H 391 H 280 H 12/08/16 17:01 POC Glucose 213 H Phys Exam - Physical Examination Constitutional: NAD HEENT: PERRLA, moist MMs, sclera anicteric, oral pharynx no lesions Neck: no nodes, no JVD, supple, full ROM Respiratory: no wheezing, no rales, no rhonchi, clear to auscultation bilateral Cardiovascular: RRR, no significant murmur, no rub, gallop Gastrointestinal: soft, non-tender, positive bowel sounds distension improved a little.wound hematoma stable Musculoskeletal: no edema, pulses present Neurological: non-focal, normal sensation, moves all 4 limbs Psychiatric: normal affect, A&O x 3 Skin: no rash Dx/Plan (1) Surgical site hematoma Status: Acute Comment: Stable (2) Acute cholecystitis Code(s): K81.0 - ACUTE CHOLECYSTITIS Status: Acute Comment: s/p lap britney (3) LFTs abnormal Code(s): R79.89 - OTHER SPECIFIED ABNORMAL FINDINGS OF BLOOD CHEMISTRY Status : Acute Comment: Improving. secondary to cholelithaisis (4) Abdominal pain Code(s): R10.9 - UNSPECIFIED ABDOMINAL PAIN Status: Acute - Plan plan discussed w/ family, PT/OT, social services assistant, out of bed/ambulate, DVT proph w/SCDs Cont laxative. DC home when BM.GS following -: hemodynamically stable.restart select home meds -: HH on DC * . Review of Systems - Review of Systems Constitutional: negative: Fever, Chills, Sweats, Weakness, Malaise, Other Respiratory: negative: Cough, Dry, Shortness of Breath, Hemoptysis, SOB with Excertion, Pleuritic Pain, Sputum, Wheezing Cardiovascular: negative: Chest Pain, Palpitations, Orthopnea, Paroxysmal Noc. Dyspnea, Edema, Light Headedness, Other Gastrointestinal: Abdominal Pain. negative: Nausea, Vomiting, Diarrhea, Constipation, Melena, Hematochezia, Other Genitourinary: negative: Dysuria, Frequency, Incontinence, Hematuria, Retention , Other Musculoskeletal: negative: Neck Pain, Shoulder Pain, Arm Pain, Back Pain, Hand Pain, Leg Pain, Foot Pain, Other Skin: negative: Rash, Lesions, Emmanuel, Bruising, Other Neurological: negative: Weakness, Numbness, Incoordination, Change in Speech, Confusion, Seizures, Other - Medications/Allergies Allergies/Adverse Reactions: Allergies Allergy/AdvReac Type Severity Reaction Status Date / Time No Known Drug Allergies Allergy Verified 12/04/16 22:10 Medications: Current Medications Acetaminophen (Tylenol) 1,000 mg PO Q6H [facility] Last Admin: 12/09/16 05:13 Dose: 1,000 mg Atorvastatin Calcium (Lipitor) 10 mg PO HS [facility] Last Admin: 12/08/16 20:20 Dose: 10 mg Bisacodyl (Dulcolax) 10 mg CA DAILYPRN [facility] Bupropion HCl (Wellbutrin Xl) 150 mg PO DAILY [facility] Last Admin: 12/09/16 09:15 Dose: 150 mg Citalopram Hydrobromide (Celexa) 20 mg PO DAILY [facility] Last Admin: 12/09/16 09:15 Dose: 20 mg Clonidine HCl (Catapres) 0.1 mg PO Q4H PRN PRN Reason: SBP>160 Last Admin: 12/08/16 23:29 Dose: 0.1 mg Dextrose/Water (Dextrose 50%) 25 gm SLOW IVP PRN PRN PRN Reason: Hypoglycemia Docusate Sodium (Colace) 100 mg PO BIDPRN PRN PRN Reason: Constipation Last Admin: 12/07/16 14:07 Dose: 100 mg Famotidine (Pepcid) 20 mg PO BID [facility] Last Admin: 12/09/16 09:15 Dose: 20 mg Gabapentin (Neurontin) 600 mg PO TID [facility] Last Admin: 12/09/16 09:15 Dose: 600 mg Glucagon (Glucagon) 1 mg IM PRN PRN PRN Reason: Hypoglycemia Hydralazine HCl (Apresoline) 10 mg SLOW IVP Q4H PRN PRN Reason: Systolic BP > 170 Dextrose/Water (D5w) 1,000 mls @ 0 mls/hr IV .Q0M PRN; As Directed PRN Reason: Hypoglycemia Insulin Human Regular (Humulin R) 0 units SC .AGGRESSIVE SLIDING PRN PRN Reason: Aggressive Sliding Scale Last Admin: 12/09/16 05:14 Dose: 13 unit Labetalol HCl (Normodyne) 20 mg SLOW IVP Q4H PRN PRN Reason: Systolic BP > 180 Lactulose (Lactulose) 30 gm PO DAILY [facility] Last Admin: 12/09/16 09:14 Dose: 30 gm Lisinopril (Zestril) 10 mg PO DAILY [facility] Last Admin: 12/09/16 09:15 Dose: 10 mg Magnesium Hydroxide (Milk Of Magnesium) 30 ml PO DAILYPRN PRN PRN Reason: Constipation Last Admin: 12/08/16 16:27 Dose: 30 ml Morphine Sulfate (Morphine Sulfate) 2 mg SLOW IVP Q4H PRN PRN Reason: Severe Pain (7-10) Last Admin: 12/07/16 15:23 Dose: 2 mg Ondansetron HCl (Zofran) 4 mg IVP Q6H PRN PRN Reason: Nausea/Vomiting Polyethylene Glycol (Miralax) 17 gm PO DAILY [facility] Last Admin: 12/09/16 09:16 Dose: 17 gm Senna/Docusate Sodium (Senokot S) 2 tab PO BID [facility] Last Admin: 12/09/16 09:15 Dose: 2 tab Sodium Chloride (Flush - Normal Saline) 10 ml IVF Q12HR [facility] Last Admin: 12/09/16 09:16 Dose: Not Given Sodium Chloride (Flush - Normal Saline) 10 ml IVF PRN PRN PRN Reason: Saline Flush Tramadol HCl (Ultram) 50 mg PO Q6H PRN PRN Reason: Moderate Pain (4-6) Last Admin: 12/08/16 16:28 Dose: 50 mg Tramadol HCl (Ultram) 100 mg PO Q6H PRN PRN Reason: Severe Pain (7-10) Last Admin: 12/07/16 14:07 Dose: 100 mg Zolpidem Tartrate (Ambien) 5 mg PO HSPRN PRN PRN Reason: Insomnia
--- NOTE | 2016-12-09 14:35 | PRG ---
DATE OF SERVICE: 12/09/2016 SUBJECTIVE: Mr. Negrete is postop day #3, status post laparoscopic cholecystectomy. The patient sta jorge a he has continued abdominal pain, although improved. He reports passing flatus. He states he ramos d a small bowel movement. His abdomen remains distended. OBJECTIVE: VITAL SIGNS: This morning, temperature 98.4, pulse 92, respirations 16, O2 sat 99% and blood pressu re 151/97. GENERAL: A well-developed male in no acute distress, sitting on the edge of the bed. PULMONARY: Normal work of breathing. Symmetric rise. CARDIOVASCULAR: Regular rate and rhythm. GASTROINTESTINAL: Abdomen is soft and minimally tender. Laparoscopic sites are clean, dry and inta ct. No further bleeding from previously bleeding surgical site. Abdomen is mildly distended, dull to percussion. No guarding or rigidity. MUSCULOSKELETAL: Moves all extremities x4. NEUROLOGIC: No focal deficit noted. LABORATORY FINDINGS: WBC 4.6, hemoglobin 14.5, hematocrit 46.9 and platelet count 151. Glucose 391 . ASSESSMENT AND PLAN: Status post laparoscopic cholecystectomy, postoperative day #3. Constipation. The patient has been started on a bowel regimen. We will add lactulose and suppositories. The pa tient is stable for discharge once he has a BM from surgical standpoint. We will follow along p.r.n . He needs to follow up with Dr. Severino, 2 weeks postoperatively as an outpatient. Assessment and p que discussed with trauma attending.a
[2016-12-09 15:46] VITALS: BP 109/72; TEMP 98.6
[2016-12-09] MEDS ORDERED: NPH, Human Insulin Isophane 300 UNIT/3 ML VIAL SQ SCH ×2 (21:00)
[2016-12-10] MEDS ORDERED: Bisacodyl 10 MG SUPP PR SCH (09:00)
--- NOTE | 2016-12-11 09:04 | DIS ---
DATE OF ADMISSION: 12/04/2016 DATE OF DISCHARGE: 12/09/2016 CONDITION AT THE TIME OF DISCHARGE: Stable and improved. DISCHARGE DIAGNOSES: 1. Acute cholecystitis, status post laparoscopic cholecystectomy. 2. Incisional site hematoma, improving. 3. Transaminitis secondary to acute cholecystitis and cholelithiasis. 4. Abdominal pain and obstipation. 5. Chest pain, acute coronary syndrome ruled out. DISCHARGE MEDICATIONS: Include lactulose 30 mg p.o. b.i.d. p.r.n., MiraLax 17 grams p.o. daily p.r. n., Senokot b.i.d. p.r.n. Resume following home medications: Lipitor 10 mg daily, Novolin 50 units b.i.d., metformin 1000 mg p.o. b.i.d., glipizide 10 mg p.o. b.i.d., lisinopril 10 mg daily, Celexa 20 mg daily, gabapentin 600 mg p.o. t.i.d., bupropion 150 mg p.o. daily. PRIMARY CARE PHYSICIAN: Dr. Rose at [facility]. CONSULTATION: Include, General Surgery, Dr. Severino PROCEDURES DONE IN THE HOSPITAL: Include, 1. CT scan of the abdomen and pelvis on 12/04/2016 which showed cholelithiasis, fatty liver, consti pation, and calcified right pleural plaques. 2. Abdominal ultrasound 12/05/2016 which showed cholelithiasis without gallbladder wall thickening or pericholecystic fluid. 3. Abdominal x-ray on 12/07/2016 which showed nonspecific bowel gas pattern. 4. Laparoscopic cholecystectomy on 12/06/2016. ADMISSION HISTORY: Mr. Negrete is a 61-year-old -[place] male with history of diabetes, hype rtension, COPD, and history of CVA who presented to the emergency room with complaints of upper abdo marsha pain and nausea with vomiting without any hematochezia or melena. Upon presentation, he was h emodynamically stable. HISTORY OF PRESENTING ADMISSION: He had negative drug screen, normal chest x-ray and EKG on present ation. He was clinically diagnosed with cholecystitis and was admitted for further care. A CT scan of the abdomen and pelvis was done, which showed cholelithiasis and General Surgery was consulted. Please see admission history and physical for further details. HOSPITAL COURSE: The patient was seen by Dr. Severino from General Surgery and because of clinical acu te cholecystitis with cholelithiasis, he underwent laparoscopic cholecystectomy. He tolerated the p rocedure well, but had significant problems with obstipation. The patient was given multiple laxati ves which helped, but the patient reported that his normal frequency to defecate is once a month. He did have some small hematoma formation in one of the laparoscopic surgical sites, which was treat ed with abdominal binder. He did not have any drop in his H\T\H and remained hemodynamically stable . Eventually, the patient's abdominal pain and distention resolved and he had small stools in the hosp ital. He was discharged on a bunch of laxatives and will return to his primary care physician for f urther followup and we will also follow up with General Surgery in 2 weeks' time. General Surgery sobia telles has cleared him for discharge at this point. He was seen and examined prior to discharge and pl ease see hospitalist progress note for further detail including the [id number] interaction from e discharge date.
== END 2016-12-09 17:15 | disposition home or self-care (01) | DRG 418 ==
LOC: ERS 14:05 → 2SE 19:21
PROVIDERS: ADMIT Internal Medicine; ATTEND Internal Medicine
PROC: 0FT44ZZ Resection of Gallbladder, Percutaneous Endoscopic Approach (ICD-10-PCS; principal; 2016-12-06)
DX: K80.00 Calculus of gallbladder with acute cholecystitis without obstruction (principal); L76.32 Postprocedural hematoma of skin and subcutaneous tissue following other procedure; I10 Essential (primary) hypertension; E11.9 Type 2 diabetes mellitus without complications; Z86.73 Personal history of transient ischemic attack (TIA), and cerebral infarction without residual deficits; J44.9 Chronic obstructive pulmonary disease, unspecified; K59.00 Constipation, unspecified; Y83.8 Other surgical procedures as the cause of abnormal reaction of the patient, or of later complication, without mention of misadventure at the time of the procedure; Y73.3 Surgical instruments, materials and gastroenterology and urology devices (including sutures) associated with adverse incidents; F17.210 Nicotine dependence, cigarettes, uncomplicated; E78.5 Hyperlipidemia, unspecified
CPT/HCPCS: 36415; 36416; 71010; 74000; 74177; 76700; 80048; 80053; 80076; 80306; 81003; 82550; 82553; 83690; 83735; 84484; 85025; 88304; 93005; 94760; 96360; A4216; J0360; J0670; J1815; J1885; J2001; J2270; J2405; J2704; J3010; S0028

== ENCOUNTER 2019-06-09 09:18 | Emergency (ER) | payer MEDICAID, MEDICARE ==
[2019-06-09 10:00] LABS: #Basophils 0.1 thou/uL (0.0-0.2); #Eosinphils 0.1 thou/uL (0.0-0.7); #Lymphocytes 1.3 thou/uL (1.20-3.40); #Monocytes 0.5 thou/uL (0.11-0.59); #Neutrophils 5.1 thou/uL (1.40-6.50); %Basophils 0.7 % (0.0-1.0); %Lymphocytes 18.5 % (21.0-51.0); %Monocytes 7.3 % (0.0-10.0); %Neutrophils 72.5 % (42.0-75.0); Hemoglobin 15.3 g/dL (14.0-18.0); Mean Corpuscular HGB CONC 33.4 g/dL (32.0-36.0); Mean Corpuscular Hemoglobin 27.9 pg (27.0-31.0); Mean Corpuscular Volume 83.5 fL (78.0-98.0); Mean Platelet Volume 9.6 fL (7.4-10.4); Platelet Count 145 thou/uL (130-400); RBC Distribution Width 12.9 % (11.5-14.5); Red Blood Cell (RBC) Count 5.48 mill/uL (4.70-6.10)
--- NOTE | 2019-06-09 10:13 | RAD ---
XR Knee Rt 4 View STANDARD HISTORY: Fall, right knee pain FINDINGS: No fracture or dislocation is identified.
[2019-06-09 10:14] LABS: ALT (SGPT) 26 U/L (8-55); AST (SGOT) 30 U/L (5-34); Albumin 3.7 g/dL (3.4-4.8); Alkaline Phosphatase 84 U/L (40-110); Anion Gap 19 mmol/L (10-20); BUN (Urea Nitrogen) 39 mg/dL (8.4-25.7); Bilirubin, Total 0.5 mg/dL (0.2-1.2); Calc. Creatinine Clearance 0 mL/min (70-130); Calcium 9.4 mg/dL (7.8-10.44); Carbon Dioxide 19 mmol/L (23-31); Chloride 101 mmol/L (98-107); Estimated GFR-MDRD 41; Globulin 3.2 g/dL (2.4-3.5); Glucose 83 mg/dL (80-115); Potassium 4.7 mmol/L (3.5-5.1); Protein, Total 6.9 g/dL (5.8-8.1); Sodium 134 mmol/L (136-145)
--- NOTE | 2019-06-09 10:17 | RAD ---
XR Knee Lt 4 View STANDARD HISTORY: Fall, left knee pain FINDINGS: No fracture or dislocation is identified.
== END 2019-06-09 11:30 | disposition home or self-care (01) ==
LOC: ERS 09:18
DX: M25.562 Pain in left knee (principal); M25.561 Pain in right knee; E86.0 Dehydration; E11.9 Type 2 diabetes mellitus without complications; J44.9 Chronic obstructive pulmonary disease, unspecified; F17.210 Nicotine dependence, cigarettes, uncomplicated; Z79.4 Long term (current) use of insulin; Z79.899 Other long term (current) drug therapy; Z86.73 Personal history of transient ischemic attack (TIA), and cerebral infarction without residual deficits; W19.XXXA Unspecified fall, initial encounter
CPT/HCPCS: 80053; 85025; 96360

== ENCOUNTER 2020-05-08 19:54 | Inpatient (IN) | payer MEDICARE, MEDICAID ==
--- NOTE | 2020-05-08 20:45 | CT ---
Exam: Head CT without contrast HISTORY: Weakness. Patient found down COMPARISON: 06/01/2014 FINDINGS: Hemorrhage: No intraparenchymal hemorrhage or extra-axial hematoma. Brain parenchyma: Cortical enrique-white matter differentiation is preserved. No mass effect or midline shift. Basilar cisterns are patent.There are chronic small vessel ischemic changes of the white matter. Tiny punctate lacunar infarcts involving the left and right deep enrique matter structures Ventricular system: Ventricles and sulci are patent and symmetric. Calvarium: Intact. Sinuses and mastoid air cells: Old right lamina propecia fracture Additional findings: Right globe prosthesis IMPRESSION: No acute intracranial process.
--- NOTE | 2020-05-08 20:46 | RAD ---
Exam: Chest one view HISTORY:Weakness Comparison: 12/04/2016 FINDINGS: Cardiac silhouette: Normal Aorta: Unremarkable Pulmonary vessels: Normal Costophrenic angles: Clear LUNGS: No masses or consolidation. Chronic changes of the lung parenchyma are noted. Stable pleural-b ased calcifications. Pneumothorax: None Osseous abnormalities: None IMPRESSION: No acute cardiopulmonary process.
[2020-05-08 20:50] LABS: Hemoglobin 16.1 g/dL (14.0-18.0); Mean Corpuscular HGB CONC 33.8 g/dL (32.0-36.0); Mean Corpuscular Hemoglobin 28.2 pg (27.0-31.0); Mean Corpuscular Volume 83.5 fL (78.0-98.0); White Blood Cell (WBC) Count 5.9 thou/uL (4.8-10.8)
[2020-05-08 21:00] LABS: #Basophils 0.1 thou/uL (0.0-0.2); #Eosinphils 0.1 thou/uL (0.0-0.7); #Lymphocytes 1.4 thou/uL (1.20-3.40); #Monocytes 0.6 thou/uL (0.11-0.59); #Neutrophils 3.6 thou/uL (1.40-6.50); %Basophils 1.5 % (0.0-1.0); %Eosinophils 2.4 % (0.0-10.0); %Lymphocytes 24.4 % (21.0-51.0); %Monocytes 9.9 % (0.0-10.0); %Neutrophils 61.8 % (42.0-75.0); Platelet Count 106 thou/uL (130-400); Platelet Morphology Comment Appears Decreased
[2020-05-08 21:29] LABS: ALT (SGPT) 45 U/L (8-55); AST (SGOT) 54 U/L (5-34); Albumin 3.4 g/dL (3.4-4.8); Alkaline Phosphatase 103 U/L (40-110); Anion Gap 18 mmol/L (10-20); BUN (Urea Nitrogen) 32 mg/dL (8.4-25.7); Bilirubin, Total 0.7 mg/dL (0.2-1.2); Calc. Creatinine Clearance 0 mL/min (70-130); Carbon Dioxide 20 mmol/L (23-31); Chloride 96 mmol/L (98-107); Globulin 3.6 g/dL (2.4-3.5); Glucose 362 mg/dL (80-115); Potassium 4.5 mmol/L (3.5-5.1); Sodium 129 mmol/L (136-145)
[2020-05-08 21:34] LABS: CKMB 2.5 ng/mL (0-6.6)
[2020-05-09 00:26] LABS: Troponin I 0.038 ng/mL (< 0.028)
--- NOTE | 2020-05-09 01:44 | PDOC.HHP ---
Hospitalist HPI Fall History of Present Illness: This a 65-year-old male patient for history of diabetes mellitus, stroke, glaucoma, COPD who presents with generalized weakness and a fall. Patient notes that he fell and cerumen was found by his neighbors. EMS was activated and on arrival found him to be severely hypertensive with blood pressures above 200/100. He was given a spray of nitroglycerin and Nitrostat which suddenly dropped his blood pressures to 70/50. He was lightheaded noted is bradycardic in the 40s. There was no associated fever, vomiting nausea or diarrhea. On arrival his blood pressure was 77/50, pulse 95, respirate 18, temperature 98.3 and saturation 99% on room air. Labs showed thrombocytopenia of 106, sodium 132, BUN 29 creatinine 1.7 glucose 187. Lactate was 1.2. Troponin was 0.038, BNP 38.9 and TSH was 0.269. He received a liter of normal saline with normalization of his blood pressure and vital signs. Given his initial elevated troponin and weakness, decision was made to admit to trend troponin and observe. Hospitalist team was consulted for admission Allergies/Adverse Reactions: Allergy/AdvReac Type Severity Reaction Status Date / Time No Known Drug Allergies Allergy Verified 05/30/19 16:19 Home Medications: Medication Instructions Recorded Confirmed Type Insulin NPH Human Isophane 30 units SQ BID 06/26/13 05/09/20 History [NovoLIN N] Lisinopril 10 mg PO DAILY 06/26/13 05/09/20 History Atorvastatin Calcium [Lipitor] 10 mg PO HS #0 tab 07/03/13 05/09/20 Rx Bupropion HCl [buPROPion HCl XL] 150 mg PO DAILY 06/01/15 05/09/20 History Gabapentin 600 mg PO BID 06/01/15 05/09/20 History Citalopram Hydrobromide 20 mg PO DAILY 12/04/16 05/09/20 History [Citalopram HBr] glipiZIDE [glipiZIDE ER] 10 mg PO BID 12/04/16 05/09/20 History Lactulose 30 gm PO BID PRN #30 udcup 12/09/16 05/09/20 Rx Polyethylene Glycol 3350 [Miralax] 17 gm PO DAILY PRN #30 pk 12/09/16 05/09/20 Rx Sennosides/Docusate Sodium [Senna 2 tab PO BID PRN #60 tab 12/09/16 05/09/20 Rx Plus Tablet] Past History: Medical history: Stroke, Diabetes mellitus Type 2, glaucoma, COPD, cholecystitis, Past surgical history: Cholecystectomy, tracheostomy, cervical fusion Family history: None of significance Social history: Smokes half a pack a day, drinks occasionally. No illicit drug use. Lives with family. Hospitalist Exam General Appearance: awake alert General - other findings: No acute distress. Eye: PERRL, anicteric sclera ENT: normocephalic atraumatic Heart: RRR, no murmur, no gallops, no rubs Respiratory: CTAB, no wheezes, no rales, no ronchi Gastrointestinal: soft, non-tender, non-distended, normal bowel sounds Extremities: no cyanosis, no clubbing, no edema Neurological: speech deficit (Intermittent slurring) Neurological - other findings: Power 5/5 on left side, 4/5 right Hospitalist Results Result Diagrams: 05/09/20 02:15 05/09/20 02:15 Lab results: Laboratory Last Values WBC 5.9 thou/uL (4.8-10.8) 05/08/20 20: RBC 5.70 mill/uL (4.70-6.10) 05/08/20 20: Hgb 16.1 g/dL (14.0-18.0) 05/08/20 20: Hct 47.6 % (42.0-52.0) 05/08/20 20: MCV 83.5 fL (78.0-98.0) 05/08/20 20: MCH 28.2 pg (27.0-31.0) 05/08/20 20: MCHC 33.8 g/dL (32.0-36.0) 05/08/20 20: RDW 12.0 % (11.5-14.5) 05/08/20 20: Plt Count 106 thou/uL (130-400) L 05/08/20 20: MPV 11.0 fL (7.4-10.4) H 05/08/20 20: Neutrophils % 61.8 % (42.0-75.0) 05/08/20 20:27 Neutrophils % (Manual) Not Reportable 05/08/20 20:27 Lymphocytes % 24.4 % (21.0-51.0) 05/08/20 20:27 Monocytes % 9.9 % (0.0-10.0) 05/08/20 20: Eosinophils % 2.4 % (0.0-10.0) 05/08/20 20: Basophils % 1.5 % (0.0-1.0) H 05/08/20 20:27 Neutrophils # 3.6 thou/uL (1.40-6.50) 05/08/20 20: Lymphocytes # 1.4 thou/uL (1.20-3.40) 05/08/20 20: Monocytes # 0.6 thou/uL (0.11-0.59) H 05/08/20 20: Eosinophils # 0.1 thou/uL (0.0-0.7) 05/08/20 20: Basophils # 0.1 thou/uL (0.0-0.2) 05/08/20 20:27 Plt Morphology Comment Appears Decreased L 05/08/20 20:27 Sodium 129 mmol/L (136-145) L 05/08/20 20:27 Potassium 4.5 mmol/L (3.5-5.1) 05/08/20 20: Chloride 96 mmol/L (98-107) L 05/08/20 20:27 Carbon Dioxide 20 mmol/L (23-31) L 05/08/20 20:27 Anion Gap 18 mmol/L (10-20) 05/08/20 20:27 BUN 32 mg/dL (8.4-25.7) H 05/08/20 20:27 Creatinine 2.52 mg/dL (0.7-1.3) H 05/08/20 20:27 Estimated GFR (MDRD) 31 05/08/20 20:27 Glucose 362 mg/dL (80-115) H 05/08/20 20:27 Lactic Acid 1.2 mmol/L (0.5-2.2) 05/08/20 20:47 Calcium 9.0 mg/dL (7.8-10.44) 05/08/20 20:27 Total Bilirubin 0.7 mg/dL (0.2-1.2) 05/08/20 20: AST 54 U/L (5-34) H 05/08/20 20: ALT 45 U/L (8-55) 05/08/20 20: Alkaline Phosphatase 103 U/L (40-110) 05/08/20 20: CK-MB (CK-2) 2.5 ng/mL (0-6.6) 05/08/20: Troponin I 0.038 ng/mL (< 0.028) H 05/08/20 23:47 B-Natriuretic Peptide 38.9 pg/mL (0-100) 05/08/20 20: Serum Total Protein 7.0 g/dL (5.8-8.1) 05/08/20: Albumin 3.4 g/dL (3.4-4.8) 05/08/20 Globulin 3.6 g/dL (2.4-3.5) H 05/08/20: Albumin/Globulin Ratio 0.9 g/dL (1.2-2.2) L 05/08/20: TSH 3rd Generation 0.2695 uIU/mL (0.35-4.94) L 05/08/20 20: Hospitalist H&P A/P Plan: This is a 65-year-old male patient with a history of diabetes mellitus, stroke, hypertension who presents with generalized weakness and a fall. Generalized weakness Unclear cause We will check phosphorus, echocardiogram in a.m. Monitor closely. Falls Patient failed earlier today Likely due to weakness however will check orthostatic signs Monitor on telemetry Echocardiogram PT evaluation in a.m. Hypertension Blood pressure currently stable We will monitor. Elevated troponin Unlikely ACS We will trend Hyperthyroidism TSH is 0.2 We will check T4 and ferritin T3 And require initial treatment and follow-up ED evaluation Previous tracheostomy Still has a small hole in tracheostomy site This may affect his speech however that is unclear We will observe. VT prophylaxisLovenox CODE STATUSfull
[2020-05-09] MEDS ORDERED: Ondansetron ODT 4 MG TAB SL PRN (01:45)
[2020-05-09] MEDS ORDERED: Ondansetron PF 4 MG/2 ML Vial IVP PRN (01:45)
[2020-05-09] MEDS ORDERED: Acetaminophen 325 MG TAB PO PRN (01:45)
[2020-05-09 02:28] LABS: #Basophils 0.1 thou/uL (0.0-0.2); #Eosinphils 0.2 thou/uL (0.0-0.7); #Lymphocytes 1.8 thou/uL (1.20-3.40); #Monocytes 0.6 thou/uL (0.11-0.59); #Neutrophils 2.9 thou/uL (1.40-6.50); %Eosinophils 2.7 % (0.0-10.0); %Lymphocytes 31.9 % (21.0-51.0); %Monocytes 10.8 % (0.0-10.0); %Neutrophils 52.6 % (42.0-75.0); Mean Corpuscular HGB CONC 34.5 g/dL (32.0-36.0); Mean Corpuscular Hemoglobin 28.5 pg (27.0-31.0); Mean Corpuscular Volume 82.6 fL (78.0-98.0); Platelet Count 119 thou/uL (130-400); RBC Distribution Width 12.1 % (11.5-14.5); White Blood Cell (WBC) Count 5.6 thou/uL (4.8-10.8)
[2020-05-09 02:30] VITALS: BMI 20.5
[2020-05-09 02:51] LABS: Troponin I 0.039 ng/mL (< 0.028)
[2020-05-09 02:52] LABS: Anion Gap 16 mmol/L (10-20); BUN (Urea Nitrogen) 29 mg/dL (8.4-25.7); Calc. Creatinine Clearance 40 mL/min (70-130); Calcium 9.1 mg/dL (7.8-10.44); Carbon Dioxide 17 mmol/L (23-31); Chloride 103 mmol/L (98-107); Glucose 187 mg/dL (80-115); Potassium 4.1 mmol/L (3.5-5.1); Sodium 132 mmol/L (136-145)
[2020-05-09] MEDS ORDERED: Sodium Chloride 0.9% 1,000 ML IV SCH (03:30)
[2020-05-09] MEDS: HYDROcodone/Acetaminophen 5/325 mg Tablet PO PRN ×3 (03:39→22:17)
[2020-05-09] MEDS ORDERED: Dextrose 50% Abboject 50 ML SYRINGE SLOW IVP PRN (04:11)
[2020-05-09] MEDS ORDERED: Dextrose 5% in Water 1,000 ML IV PRN (04:11)
[2020-05-09 07:47] LABS: Free T4 (Free Thyroxine) 1.16 ng/dL (0.70-1.48)
[2020-05-09 08:46] LABS: SARS-CoV-2 PCR by NAA Not Detected (NotDetected)
[2020-05-09] MEDS: Enoxaparin Sodium 40 MG/0.4 ML SYRINGE SC SCH (08:53)
[2020-05-09] MEDS: HumaLOG 300 UNITS/3 ML VIAL SC PRN ×2 (11:26→17:05)
[2020-05-09] MEDS ORDERED: Polyethylene Glycol 3350 17 GM Packet PO PRN (12:08)
[2020-05-09] MEDS ORDERED: DOCUSATE SODIUM PO PRN (12:08)
[2020-05-09] MEDS ORDERED: SENNOSIDES PO PRN (12:08)
[2020-05-09] MEDS ORDERED: Senokot S 8.6-50 MG TAB PO PRN (12:26)
[2020-05-09] MEDS: Sodium Chloride 0.9% 1,000 ML IV SCH (12:47)
--- NOTE | 2020-05-09 14:01 | PDOC.HOSPP ---
- Subjective Subjective: Patient was seen examined at bedside. No acute events overnight. This is a 65 years old -[place] gentleman who has significant past medical histories of recent stroke, diabetes, hypertension, who was sent to the ED with complaint of generalized weakness and status post fall. Further work-up showed that he had mild elevated troponin, as well as JAYY. His creatinine has trended down nicely with IV fluid hydration. I have discussed with his daughters on the phone. CT head was unremarkable. - Objective Vital Signs & Weight: Vital Signs (12 hours) Temp Pulse Pulse Pulse Pulse Pulse Resp 05/09/20 11:47 97.7 F 102 H 20 05/09/20 09:30 94 95 101 H 94 05/09/20 08:43 97.4 F L 05/09/20 07:57 91 16 05/09/20 05:24 96 05/09/20 02:51 96 BP BP BP BP BP BP BP 05/09/20 11:47 112/70 05/09/20 09:30 110/65 107/68 103/73 109/70 107/68 103/73 05/09/20 08:43 05/09/20 07:57 89/59 L 05/09/20 05:24 99/71 05/09/20 02:51 BP Pulse Ox 05/09/20 11:47 94 L 05/09/20 09:30 110/65 05/09/20 08:43 05/09/20 07:57 99 05/09/20 05:24 05/09/20 02:51 124/68 Weight Weight 139 lb 6.4 oz I&O: 05/08/20 05/09/20 05/10/20 06:59 06:59 06:59 Intake Total 120 Output Total 700 Balance -580 Result Diagrams: 05/09/20 02:15 05/09/20 02:15 Additional Labs: Accuchecks 05/09/20 05/09/20 10:49 06:41 POC Glucose 194 H 137 H Radiology Reviewed by me: Yes EKG Reviewed by me: Yes Hospitalist ROS - Medication Medications: Active Medications Generic Name Dose Route Start Last Admin Trade Name Freq PRN Reason Stop Dose Admin Hydrocodone Bitart/Acetaminophen 1 tab 05/09/20 03:14 05/09/20 11:05 Hydrocodone/Acetaminophen 5/325 Mg Tablet PO 1 tab Q4H PRN Administration Moderate Pain (4-6) Enoxaparin Sodium 40 mg 05/09/20 09:00 05/09/20 08:53 Enoxaparin Sodium 40 Mg/0.4 Ml Syringe SC 40 mg 0900 YANET Administration Sodium Chloride 1,000 mls @ 50 mls/hr 05/09/20 12:15 05/09/20 12:47 Normal Saline 0.9% IV 1,000 mls .Q20H YANET Administration Insulin Human Lispro 0 units 05/09/20 04:11 05/09/20 11:26 Humalog 300 Units/3 Ml Vial SC 2 unit .MILD SLIDING SCALE PRN Administration Mild Correctional Scale Hospitalist Exam Vitals: Vital Signs (12 hours) Temp Pulse Pulse Pulse Pulse Pulse Resp 05/09/20 11:47 97.7 F 102 H 20 05/09/20 09:30 94 95 101 H 94 05/09/20 08:43 97.4 F L 05/09/20 07:57 91 16 05/09/20 05:24 96 05/09/20 02:51 96 BP BP BP BP BP BP BP 05/09/20 11:47 112/70 05/09/20 09:30 110/65 107/68 103/73 109/70 107/68 103/73 05/09/20 08:43 05/09/20 07:57 89/59 L 05/09/20 05:24 99/71 05/09/20 02:51 BP Pulse Ox 05/09/20 11:47 94 L 05/09/20 09:30 110/65 05/09/20 08:43 05/09/20 07:57 99 05/09/20 05:24 05/09/20 02:51 124/68 Weight Weight 139 lb 6.4 oz General Appearance: NAD Eye: PERRL ENT: normocephalic atraumatic Neck: supple Heart: RRR, no murmur Respiratory: CTAB, no wheezes Gastrointestinal: soft, non-tender Extremities: no cyanosis Skin: normal turgor Neurological: cranial nerve grossly intact Musculoskeletal: normal tone Psychiatric: normal affect, normal behavior, A&O x 3 Hosp A/P (1) JAYY (acute kidney injury) Code(s): N17.9 - ACUTE KIDNEY FAILURE, UNSPECIFIED Status: Acute (2) Generalized weakness Code(s): R53.1 - WEAKNESS Status: Acute (3) Status post fall Code(s): Z91.81 - HISTORY OF FALLING Status: Acute (4) History of CVA (cerebrovascular accident) Code(s): Z86.73 - PRSNL HX OF TIA (TIA), AND CEREB INFRC W/O RESID DEFICITS Status: Acute (5) Hypotension Status: Acute - Plan This is a 65-year-old male patient with a history of diabetes mellitus, stroke, hypertension who presents with generalized weakness and s/p fall. Generalized weakness - likely due to multifactorial, no focal. CT head was unremarkable Continue IV fluid hydration, supportive care. PT eval Status post fall Likely due to above, PT eval JAYY - due to volume depletion Creatinine improved with IV fluid hydration. Repeat BMP in AM. Continue gentle IV fluid hydration overnight Hypotension - present on admission. No evidence of infection Blood pressures improved, continue to monitor. We will hold off on resuming his blood pressure medication at this point Elevated troponin Likely due to above, recent fall. Serial cardiac enzymes remain flat, and is mildly elevated in setting of JAYY, question of significance. Follow echo Hypertension He was hypotensive on admission, blood pressure has improved. We will hold off on resuming his home medication, lisinopril at this point. Dyslipidemia Continue statin therapy Diabetes type 2 Resume home dose NPH, insulin sliding scale, monitor blood glucose and adjust as needed. History of CVA Continue home medication
[2020-05-09] MEDS ORDERED: NPH, Human Insulin Isophane 300 UNIT/3 ML VIAL SQ SCH (21:00)
[2020-05-09] MEDS ORDERED: Non-Formulary Item 1 EACH (Gabapentin [Gabapentin] 600 MG Tablet) PO SCH (21:00)
[2020-05-09] MEDS: Gabapentin 300 MG CAP PO SCH (21:51)
[2020-05-09] MEDS: Atorvastatin Calcium 10 MG TAB PO SCH (21:52)
[2020-05-09] MEDS: NPH, Human Insulin Isophane 300 UNIT/3 ML VIAL SQ SCH (21:52)
[2020-05-10 05:42] LABS: Anion Gap 11 mmol/L (10-20); BUN (Urea Nitrogen) 25 mg/dL (8.4-25.7); Calc. Creatinine Clearance 64 mL/min (70-130); Calcium 8.9 mg/dL (7.8-10.44); Carbon Dioxide 20 mmol/L (23-31); Chloride 110 mmol/L (98-107); Glucose 246 mg/dL (80-115); Potassium 4.2 mmol/L (3.5-5.1); Sodium 137 mmol/L (136-145)
[2020-05-10] MEDS: HumaLOG 300 UNITS/3 ML VIAL SC PRN ×2 (05:50→22:33)
[2020-05-10] MEDS: Sodium Chloride 0.9% 1,000 ML IV SCH (07:43)
[2020-05-10] MEDS: HYDROcodone/Acetaminophen 5/325 mg Tablet PO PRN ×3 (07:43→22:33)
[2020-05-10 08:10] LABS: Hemoglobin A1c Greater than 14.0 % (4.0-6.0)
[2020-05-10] MEDS: Enoxaparin Sodium 40 MG/0.4 ML SYRINGE SC SCH (08:54)
[2020-05-10] MEDS: Gabapentin 300 MG CAP PO SCH ×2 (08:55→20:19)
[2020-05-10] MEDS: Bupropion 150 MG XL TAB PO SCH (08:55)
[2020-05-10] MEDS: Citalopram 20 MG TAB PO SCH (08:55)
[2020-05-10] MEDS: NPH, Human Insulin Isophane 300 UNIT/3 ML VIAL SQ SCH ×2 (08:59→20:22)
[2020-05-10] MEDS ORDERED: Lisinopril 10 MG TAB PO SCH (09:00)
--- NOTE | 2020-05-10 13:53 | PDOC.HOSPP ---
- Subjective Encounter Date: 05/10/20 Subjective: No acute events overnight. Patient is alert and awake. I also had a chance to talk to his caregiver and discuss the plan of care. - Objective Vital Signs & Weight: Vital Signs (12 hours) Temp Pulse Resp BP Pulse Ox 05/10/20 11:35 97.8 F 99 16 118/70 100 05/10/20 07:17 97.7 F 89 16 126/78 100 05/10/20 04:00 97.5 F L 90 20 147/83 H 99 Weight Weight 139 lb 6.4 oz I&O: 05/09/20 05/10/20 05/11/20 06:59 06:59 06:59 Intake Total 120 2513 600 Output Total 700 1400 375 Balance -580 1113 225 Result Diagrams: 05/09/20 02:15 05/10/20 04:55 Additional Labs: Accuchecks 05/10/20 05/10/20 05/09/20 10:54 05:46 20:41 POC Glucose 147 H 223 H 247 H 05/09/20 05/09/20 05/08/20 16:50 02:49 20:08 POC Glucose 340 H 157 H 340 H Hospitalist ROS - Medication Medications: Active Medications Generic Name Dose Route Start Last Admin Trade Name Freq PRN Reason Stop Dose Admin Hydrocodone Bitart/Acetaminophen 1 tab 05/09/20 03:14 05/10/20 07:43 Hydrocodone/Acetaminophen 5/325 Mg Tablet PO 1 tab Q4H PRN Administration Moderate Pain (4-6) Atorvastatin Calcium 10 mg 05/09/20 21:00 05/09/20 21:52 Atorvastatin Calcium 10 Mg Tab PO 10 mg HS YANET Administration Bupropion HCl 150 mg 05/10/20 09:00 05/10/20 08:55 Bupropion 150 Mg Xl Tab PO 150 mg DAILY YANET Administration Citalopram Hydrobromide 20 mg 05/10/20 09:00 05/10/20 08:55 Citalopram 20 Mg Tab PO 20 mg DAILY YANET Administration Enoxaparin Sodium 40 mg 05/09/20 09:00 05/10/20 08:54 Enoxaparin Sodium 40 Mg/0.4 Ml Syringe SC 40 mg 0900 YANET Administration Gabapentin 600 mg 05/09/20 21:00 05/10/20 08:55 Gabapentin 300 Mg Cap PO 600 mg BID YANET Administration Glipizide 10 mg 05/09/20 21:00 05/10/20 08:55 Glipizide Xl 10 Mg Tablet PO 10 mg BID YANET Administration Sodium Chloride 1,000 mls @ 50 mls/hr 05/09/20 12:15 05/10/20 07:43 Normal Saline 0.9% IV 1,000 mls .Q20H YANET Administration Insulin Human Lispro 0 units 05/09/20 04:11 05/10/20 05:50 Humalog 300 Units/3 Ml Vial SC 3 unit .MILD SLIDING SCALE PRN Administration Mild Correctional Scale Insulin Human NPH 30 unit 05/09/20 21:00 05/10/20 08:59 Nph, Human Insulin Isophane 300 Unit/3 Ml Vial SQ 30 unit BID YANET Administration Sodium Chloride 10 ml 05/09/20 21:00 05/10/20 09:02 Flush - Normal Saline 10 Ml Syringe IVF Not Given Q12HR [facility] Hospitalist Exam Vitals: Vital Signs (12 hours) Temp Pulse Resp BP Pulse Ox 05/10/20 11:35 97.8 F 99 16 118/70 100 05/10/20 07:17 97.7 F 89 16 126/78 100 05/10/20 04:00 97.5 F L 90 20 147/83 H 99 Weight Weight 139 lb 6.4 oz General Appearance: NAD, awake alert General - other findings: stuttering Eye: PERRL ENT: normocephalic atraumatic ENT - other findings: tracheostomy stoma Heart: RRR, no murmur, no gallops Respiratory: CTAB, no wheezes, no rales, no ronchi Gastrointestinal: soft, non-tender, non-distended Extremities: no clubbing, no edema Neurological: cranial nerve grossly intact Musculoskeletal: normal tone, normal strength Psychiatric: normal affect, normal behavior Hosp A/P (1) JAYY (acute kidney injury) Code(s): N17.9 - ACUTE KIDNEY FAILURE, UNSPECIFIED Status: Acute (2) Generalized weakness Code(s): R53.1 - WEAKNESS Status: Acute (3) History of CVA (cerebrovascular accident) Code(s): Z86.73 - PRSNL HX OF TIA (TIA), AND CEREB INFRC W/O RESID DEFICITS Status: Acute (4) Status post fall Code(s): Z91.81 - HISTORY OF FALLING Status: Acute - Plan Assessment Patient is a 65 year old with a PMH of CVA, s/p tracheostomy, HTN and frequent falls recently. He has home health services but they come only once every 2 weeks as per patient. He is admitted with another fall incident. Trauma work up was unremarkable. His 2D echo showed a EF of 40% with grade 1 diastolic dysfunction. He had some metabolic derangement including JAYY and uncontrolled hyperglycmeia. HbA1c 14. Patient would like to go home but this may not be the safest disposition for him Frequent falls Type II diabetes mellitus with hyperglycemia A1c 14 Hypertension Generalized weakness Hypothyroidism PLAN: Continue PT/OT while in-house Start patient on NPH 10 units twice daily Continue insulin sliding scale I have consulted pillowcase turner to arrange for either longterm facility versus rehab for disposition. I appreciate assistance Blood pressure control: START low dose coreg. If BP still permits and renal function is intact, I will add LALITO-i for dual management of CHF and HTN
[2020-05-10] MEDS: Carvedilol 6.25 MG TAB PO SCH (16:52)
[2020-05-10] MEDS: Atorvastatin Calcium 10 MG TAB PO SCH (20:19)
[2020-05-10] MEDS ORDERED: HumaLOG 300 UNITS/3 ML VIAL SC PRN (22:22)
[2020-05-11] MEDS: Sodium Chloride 0.9% 1,000 ML IV SCH (04:43)
[2020-05-11] MEDS: Enoxaparin Sodium 40 MG/0.4 ML SYRINGE SC SCH (08:36)
[2020-05-11] MEDS: NPH, Human Insulin Isophane 300 UNIT/3 ML VIAL SQ SCH (08:36)
[2020-05-11] MEDS: Citalopram 20 MG TAB PO SCH (08:37)
[2020-05-11] MEDS: Bupropion 150 MG XL TAB PO SCH (08:37)
[2020-05-11] MEDS: Carvedilol 6.25 MG TAB PO SCH (08:37)
[2020-05-11] MEDS: Gabapentin 300 MG CAP PO SCH (08:37)
[2020-05-11] MEDS: HYDROcodone/Acetaminophen 5/325 mg Tablet PO PRN (08:40)
--- NOTE | 2020-05-11 08:58 | PQF ---
CLINICAL DOCUMENTATION CLARIFICATION FORM: Dear Dr. Prince Mcgarry Date / Time: 05-11-20 Please exercise your independent, professional judgment in responding to the clarification form. Clinical indicators are provided on the bottom of this form for your review. Please check appropriate box(es): [ x] Hyponatremia please specify etiology, if known [ ] Insignificant Lab Values [ ] Other diagnosis [ ] Unable to determine In addition, please specify: Present on Admission (POA): [ x] Yes [ ] No [ ] Unable to determine For continuity of documentation, please document condition throughout progress notes and discharge summary. Thank You. To be completed by CDI/Coding staff for physician review: CLINICAL INDICATORS - SIGNS / SYMPTOMS / LABS / RESULTS AND LOCATION IN EMR: SODIUM 05-08-20: 129 05-09-20: 132 H&P 05-08-20: HX DM, STROKE, GLAUCOMA, COPD, PRESENTS WITH GENERALIZED WEAKNESS AND FALL RISK FACTORS / RESULTS AND LOCATION IN EMR: H&P 05-08-20: HX DM, STROKE, GLAUCOMA, COPD, PRESENTS WITH GENERALIZED WEAKNESS AND FALL PN DR. MCGARRY 05-10-20: JAYY, GENERALIZED WEAKNESS, HAS SOME METABOLIC DERANGEMENT INCLUDING JAYY AND INCONTROLLABLE HYPERGLYCEMIA TREATMENTS / RESULTS AND LOCATION IN EMR: PN DR. MCGARRY 05-10-20: START PT ON NPH 10 UNITS TWICE DAILY, CONTINUE SLIDING SCALE 05-09-20: NS IVF CDS Signature: Cherrie Hughes Phone #: [phone] Date: 05-11-20 This is a permanent part of the Medical Record [facility]
[2020-05-11] MEDS: HumaLOG 300 UNITS/3 ML VIAL SC PRN (11:19)
[2020-05-11 11:40] VITALS: BP 114/72; TEMP 97.4
--- NOTE | 2020-05-11 11:43 | PDOC.DS.DS ---
Provider Date of Admission: 05/10/20 17:11 Date of Discharge: 05/11/20 Admitting Provider: Neeraj Judge MD Primary Care Physician: ORION MEREDITH Course Hospital Course: Patient is a 65 year old man with a PMH of CVA, respiratory failure s/p tracheostomy now with open stoma, HTN and frequent falls recently. He was admitted to the hospital with complaints of fall and generalized weakness. Found to have JAYY, which resolved with volume repletion. Trauma work up was unremarkable. His 2D echo showed a EF of 40% with grade 1 diastolic dysfunction. Patient was also severely hyperglycemic. A1c was > 14. He did well on scheduled insulin. He has home health services but they come only once every 2 weeks as per patient. I have tried to convince the patient to go to rehab vs SNF as recommended by PT. However, patient refused. I also involved his caregiver in the decision making process. Patient categorically refused to be placed, stating he has some business to take care of. Instead, he will try to arrange frequent home PT via his leather case finisher. I discussed with his RN to also involve our director social involved in order to coordinate for home PT/OT and care home. Lab Results: 05/09/20 02:15 05/10/20 04:55 Abnormal Lab Results - Last 48 hrs 05/09/20 02:15: Hemoglobin A1c Greater than 14.0 H 05/10/20 04:55: Chloride 110 H, Carbon Dioxide 20 L Vitals: Vital Signs (12 hours) Temp Pulse Resp BP BP BP BP 05/11/20 11:39 97.4 F L 85 16 114/72 05/11/20 08:37 129/90 05/11/20 07:43 122/77 99/66 157/90 H 05/11/20 07:20 05/11/20 07:15 97.3 F L 81 18 129/90 05/11/20 04:15 97.5 F L 82 14 126/82 Pulse Ox 05/11/20 11:39 99 05/11/20 08:37 05/11/20 07:43 05/11/20 07:20 99 05/11/20 07:15 100 05/11/20 04:15 99 Weight Weight 139 lb 6.4 oz Physical Exam: The patient was seen and examined on the day of discharge. General Appearance: NAD, awake alert Eye: anicteric sclera ENT: normocephalic atraumatic ENT - other findings: open stoma Neck: supple Respiratory: CTAB, no wheezes, no rales, no ronchi Cardiovascular: RRR, no murmur, no gallops, no rubs Gastrointestinal: soft, non-tender, non-distended, normal bowel sounds Extremities: no clubbing, no edema Neurological: speech deficit PSYCH: normal affect, normal behavior Problem (1) JAYY (acute kidney injury) Code(s): N17.9 - ACUTE KIDNEY FAILURE, UNSPECIFIED Status: Acute (2) Generalized weakness Code(s): R53.1 - WEAKNESS Status: Acute (3) History of CVA (cerebrovascular accident) Code(s): Z86.73 - PRSNL HX OF TIA (TIA), AND CEREB INFRC W/O RESID DEFICITS Status: Acute (4) Status post fall Code(s): Z91.81 - HISTORY OF FALLING Status: Acute Plan Prescriptions: Carvedilol [Coreg] 6.25 mg PO BID-WM #60 tab Home Medications: Medication Instructions Recorded Confirmed Type Insulin NPH Human Isophane 30 units SQ BID 06/26/13 05/09/20 History [NovoLIN N] Lisinopril 10 mg PO DAILY 06/26/13 05/09/20 History Atorvastatin Calcium [Lipitor] 10 mg PO HS #0 tab 07/03/13 05/09/20 Rx Bupropion HCl [buPROPion HCl XL] 150 mg PO DAILY 06/01/15 05/09/20 History Gabapentin 600 mg PO BID 06/01/15 05/09/20 History Citalopram Hydrobromide 20 mg PO DAILY 12/04/16 05/09/20 History [Citalopram HBr] glipiZIDE [glipiZIDE ER] 10 mg PO BID 12/04/16 05/09/20 History Lactulose 30 gm PO BID PRN #30 udcup 12/09/16 05/09/20 Rx Polyethylene Glycol 3350 [Miralax] 17 gm PO DAILY PRN #30 pk 12/09/16 05/09/20 Rx Sennosides/Docusate Sodium [Senna 2 tab PO BID PRN #60 tab 09/30/17 02/28/21 Rx Plus Tablet] Carvedilol [Coreg] 6.25 mg PO BID-WM #60 tab 05/11/20 Rx Allergies: No Known Drug Allergies Allergy (Verified 05/30/19 16:19) PER pt REPORT Referrals: KINSEY WALTER & [Primary Care Provider] - Disposition: HOME HEALTH Quality CORE MEASURES:: N/A
== END 2020-05-11 15:22 | disposition home health service (06) | DRG 683 ==
LOC: ERS 19:54 → 2SE 23:16 → OBSVTOIN 05-10 17:11
PROVIDERS: ADMIT Student in an Organized Health Care Education/Training Program; ATTEND Internal Medicine
DX: N17.9 Acute kidney failure, unspecified (principal); E87.1 Hypo-osmolality and hyponatremia; R53.1 Weakness; F17.210 Nicotine dependence, cigarettes, uncomplicated; E86.0 Dehydration; D69.6 Thrombocytopenia, unspecified; H40.9 Unspecified glaucoma; R77.8 Other specified abnormalities of plasma proteins; E78.5 Hyperlipidemia, unspecified; I11.0 Hypertensive heart disease with heart failure; I50.9 Heart failure, unspecified; E11.65 Type 2 diabetes mellitus with hyperglycemia; J44.9 Chronic obstructive pulmonary disease, unspecified; Z91.81 History of falling; Z86.73 Personal history of transient ischemic attack (TIA), and cerebral infarction without residual deficits; Z79.4 Long term (current) use of insulin; Z79.899 Other long term (current) drug therapy; Z90.49 Acquired absence of other specified parts of digestive tract; Z93.0 Tracheostomy status; Z98.890 Other specified postprocedural states; E03.9 Hypothyroidism, unspecified; Z20.822 Contact with and (suspected) exposure to COVID-19
CPT/HCPCS: 36415; 36416; 70450; 71045; 80048; 80053; 82553; 83036; 83605; 83880; 84439; 84443; 84481; 84484; 85025; 87635; 93005; 93306; 94760; 96372; G0378; J1650; J1815; U0003; U0005

== ENCOUNTER 2020-05-18 17:11 | Observation (INO) | payer MEDICARE, MEDICAID ==
[2020-05-18 18:03] LABS: Hemoglobin 15.8 g/dL (14.0-18.0); Mean Corpuscular HGB CONC 31.8 g/dL (32.0-36.0); Mean Corpuscular Hemoglobin 27.2 pg (27.0-31.0); Mean Corpuscular Volume 85.3 fL (78.0-98.0); Mean Platelet Volume 9.8 fL (7.4-10.4); Platelet Count 123 thou/uL (130-400); RBC Distribution Width 13.2 % (11.5-14.5); Red Blood Cell (RBC) Count 5.83 mill/uL (4.70-6.10); White Blood Cell (WBC) Count 5.5 thou/uL (4.8-10.8)
[2020-05-18 18:25] LABS: Band 7 % (5-11); Eosinophils 1 % (0-10); Lymphocytes 16 % (21-51); MDiff Complete? YES; Monocytes 8 % (0-10); Myelocyte 1 % (0-0); Neutrophil 60 % (42-75); Platelet Morphology Comment Appears Decreased; RBC Morphology Normal; Reactive Lymphocytes 7 % (0-10)
[2020-05-18 18:41] LABS: CKMB 2.5 ng/mL (0-6.6)
[2020-05-18] MEDS ORDERED: Aspirin Chewable 81 MG TAB ONE (20:13)
[2020-05-18 21:14] LABS: Albumin 3.2 g/dL (3.4-4.8)
[2020-05-18 21:16] LABS: Calcium 8.9 mg/dL (7.8-10.44); Chloride 104 mmol/L (98-107); Potassium 4.7 mmol/L (3.5-5.1); Sodium 135 mmol/L (136-145)
[2020-05-18 21:17] LABS: Globulin 3.6 g/dL (2.4-3.5); Glucose 272 mg/dL (80-115); Protein, Total 6.8 g/dL (5.8-8.1)
[2020-05-18 21:18] LABS: Anion Gap 18 mmol/L (10-20); Carbon Dioxide 18 mmol/L (23-31)
[2020-05-18 21:19] LABS: Bilirubin, Total 0.8 mg/dL (0.2-1.2)
[2020-05-18 21:20] LABS: Alkaline Phosphatase 103 U/L (40-110); Calc. Creatinine Clearance 0 mL/min (70-130)
[2020-05-18 21:21] LABS: BUN (Urea Nitrogen) 24 mg/dL (8.4-25.7)
[2020-05-18 21:22] LABS: AST (SGOT) 41 U/L (5-34)
[2020-05-18 21:23] LABS: ALT (SGPT) 39 U/L (8-55)
[2020-05-18 23:20] LABS: Troponin I 0.027 ng/mL (< 0.028)
[2020-05-18 23:35] LABS: T4 12.5 ug/dL (4.87-11.72)
[2020-05-19 00:34] LABS: Bacteria/HPF None Seen HPF (None Seen); Bilirubin Negative (Negative); Blood, Urine Negative (Negative); Clarity Clear (Clear); Glucose, Urine (Dipstick) Greater than 1000 mg/dL (Negative); Ketone, Urine Trace mg/dL (Negative); Leukocyte 25 Leu/uL (Negative); Mucous/LPF Rare LPF (<2+); Nitrite Negative (Negative); Protein, Urine (Dipstick) 30 mg/dL (Neg-Trace); RBC/HPF 0-3 HPF (0-3); Specific Gravity, Urine 1.022 (1.002-1.036); Squamous Epithelial 0-3 HPF (0-3); pH, Urine 6.5 (5.0-9.0)
[2020-05-19 00:35] LABS: Sperm/HPF 3+ HPF (None Seen)
[2020-05-19] MEDS ORDERED: Sodium Chloride 0.9% 1,000 ML IV SCH ×2 (01:15→08:15)
[2020-05-19 01:54] VITALS: BMI 21.7
[2020-05-19 02:10] LABS: Troponin I 0.028 ng/mL (< 0.028)
[2020-05-19] MEDS ORDERED: Acetaminophen 325 MG TAB PO PRN (03:41)
[2020-05-19] MEDS ORDERED: Ondansetron ODT 4 MG TAB PO PRN (03:41)
[2020-05-19] MEDS ORDERED: cefTRIAXone\\ROCEPHIN 1 GM in Sodium Chloride 0.9% 100 ML IVPB SCH (05:00)
[2020-05-19] MEDS ORDERED: Dextrose 5% in Water 1,000 ML IV PRN (08:11)
[2020-05-19] MEDS ORDERED: HumaLOG 300 UNITS/3 ML VIAL SC PRN (08:11)
[2020-05-19] MEDS ORDERED: Dextrose 50% Abboject 50 ML SYRINGE SLOW IVP PRN (08:11)
[2020-05-19] MEDS ORDERED: Polyethylene Glycol 3350 17 GM Packet PO PRN (08:46)
[2020-05-19] MEDS ORDERED: SENNOSIDES PO PRN (08:46)
[2020-05-19] MEDS ORDERED: DOCUSATE SODIUM PO PRN (08:46)
[2020-05-19] MEDS ORDERED: Gabapentin 300 MG CAP PO SCH (09:00)
[2020-05-19] MEDS ORDERED: Carvedilol 6.25 MG TAB PO SCH ×2 (09:00→17:00)
[2020-05-19] MEDS ORDERED: Bupropion 150 MG XL TAB PO SCH (09:00)
[2020-05-19] MEDS ORDERED: Non-Formulary Item 1 EACH (Gabapentin [Gabapentin] 600 MG Tablet) PO SCH (09:00)
[2020-05-19] MEDS ORDERED: Citalopram 20 MG TAB PO SCH (09:00)
[2020-05-19] MEDS ORDERED: NPH, Human Insulin Isophane 300 UNIT/3 ML VIAL SQ SCH ×2 (09:00)
[2020-05-19] MEDS ORDERED: Senokot S 8.6-50 MG TAB PO PRN (09:14)
[2020-05-19 09:23] LABS: Anion Gap 13 mmol/L (10-20); BUN (Urea Nitrogen) 24 mg/dL (8.4-25.7); Calc. Creatinine Clearance 53 mL/min (70-130); Calcium 9.2 mg/dL (7.8-10.44); Carbon Dioxide 23 mmol/L (23-31); Chloride 102 mmol/L (98-107); Glucose 401 mg/dL (80-115); Potassium 4.3 mmol/L (3.5-5.1); Sodium 134 mmol/L (136-145)
[2020-05-19 09:40] LABS: SARS-CoV-2 PCR by NAA Not Detected (NotDetected)
[2020-05-19 11:48] VITALS: TEMP 98.7
[2020-05-19 15:58] VITALS: BP 165/110
[2020-05-19] MEDS ORDERED: Atorvastatin Calcium 10 MG TAB PO SCH (21:00)
[2020-05-19] MEDS ORDERED: Tamsulosin HCl 0.4 MG CAP PO SCH (21:00)
[2020-05-19] MEDS ORDERED: FLU VACC QS2020-21(6MOS UP)/PF 60 MCG/0.5 ML SYRINGE IM ONE (21:00)
[2020-05-19] MEDS ORDERED: Prevnar 13-Val Conj/PF 0.5 ML SYRINGE IM ONE (21:00)
== END 2020-05-19 15:51 | disposition home health service (06) ==
LOC: ERS 17:11 → 3SE 22:12
PROVIDERS: ADMIT Internal Medicine; ATTEND Emergency Medicine
DX: R55 Syncope and collapse (principal); I95.9 Hypotension, unspecified; R33.9 Retention of urine, unspecified; N17.9 Acute kidney failure, unspecified; I11.0 Hypertensive heart disease with heart failure; I50.42 Chronic combined systolic (congestive) and diastolic (congestive) heart failure; N39.0 Urinary tract infection, site not specified; E11.40 Type 2 diabetes mellitus with diabetic neuropathy, unspecified; I69.351 Hemiplegia and hemiparesis following cerebral infarction affecting right dominant side; E78.5 Hyperlipidemia, unspecified; F17.210 Nicotine dependence, cigarettes, uncomplicated; F32.9 Major depressive disorder, single episode, unspecified; Z79.4 Long term (current) use of insulin; Z79.899 Other long term (current) drug therapy; Z93.0 Tracheostomy status; Z98.1 Arthrodesis status; Z20.822 Contact with and (suspected) exposure to COVID-19
CPT/HCPCS: 51702; 71045; 80048; 82533; 82553; 82962 ×2; 84436; 84481; 84484 ×3; 93005; 97116; 97139 ×2; 97535; 99285; U0003; U0005; 36415; 36416; 80053; 81003; 81015; 84443; 85025; 87635; 96374; G0378; J0696; J1815; J3490

== ENCOUNTER 2020-07-31 14:55 | Observation (INO) | payer MEDICARE, MEDICAID ==
[2020-07-31 16:02] LABS: #Basophils 0.1 thou/uL (0.0-0.2); #Eosinphils 0.1 thou/uL (0.0-0.7); #Lymphocytes 1.8 thou/uL (1.20-3.40); #Monocytes 0.5 thou/uL (0.11-0.59); #Neutrophils 2.6 thou/uL (1.40-6.50); %Basophils 1.3 % (0.0-1.0); %Lymphocytes 35.4 % (21.0-51.0); %Monocytes 10.4 % (0.0-10.0); Hemoglobin 13.2 g/dL (14.0-18.0); Mean Corpuscular HGB CONC 32.6 g/dL (32.0-36.0); Mean Corpuscular Hemoglobin 27.7 pg (27.0-31.0); Mean Corpuscular Volume 84.9 fL (78.0-98.0); Mean Platelet Volume 8.5 fL (7.4-10.4); Platelet Count 143 thou/uL (130-400); RBC Distribution Width 13.3 % (11.5-14.5); Red Blood Cell (RBC) Count 4.75 mill/uL (4.70-6.10); White Blood Cell (WBC) Count 5.1 thou/uL (4.8-10.8)
[2020-07-31 16:31] LABS: ALT (SGPT) 34 U/L (8-55); AST (SGOT) 25 U/L (5-34); Albumin 3.8 g/dL (3.4-4.8); Alkaline Phosphatase 122 U/L (40-110); Anion Gap 17 mmol/L (10-20); BUN (Urea Nitrogen) 34 mg/dL (8.4-25.7); Bilirubin, Total 0.5 mg/dL (0.2-1.2); CK (CPK) 77 U/L (30-200); Calc. Creatinine Clearance 0 mL/min (70-130); Calcium 9.9 mg/dL (7.8-10.44); Carbon Dioxide 23 mmol/L (23-31); Chloride 100 mmol/L (98-107); Globulin 3.4 g/dL (2.4-3.5); Glucose 188 mg/dL (80-115); Lipase 23 U/L (8-78); Protein, Total 7.2 g/dL (5.8-8.1); Sodium 136 mmol/L (136-145)
[2020-07-31] MEDS ORDERED: Acetaminophen 500 MG TAB ONE (17:09)
[2020-07-31 18:16] LABS: Bacteria/HPF None Seen HPF (None Seen); Bilirubin Negative (Negative); Blood, Urine Negative (Negative); Clarity Turbid (Clear); Glucose, Urine (Dipstick) Greater than 1000 mg/dL (Negative); Ketone, Urine Negative (Negative); Leukocyte 500 Leu/uL (Negative); Nitrite Negative (Negative); Protein, Urine (Dipstick) Negative (Neg-Trace); Specific Gravity, Urine 1.009 (1.002-1.036); Squamous Epithelial 0-3 HPF (0-3); Urobilinogen Normal mg/dL (Less than 2); WBC/HPF Greater than 50 HPF (0-3); pH, Urine 5.5 (5.0-9.0)
[2020-07-31 18:36] LABS: Yeast-Budding 2+ HPF (None Seen); Yeast-Hyphae Rare HPF (None Seen)
[2020-07-31] MEDS ORDERED: Senokot S 8.6-50 MG TAB PO PRN (18:56)
[2020-07-31] MEDS ORDERED: Dextrose 5% in Water 1,000 ML IV PRN (18:56)
[2020-07-31] MEDS ORDERED: HumaLOG 300 UNITS/3 ML VIAL SC PRN (18:56)
[2020-07-31] MEDS ORDERED: Ondansetron ODT 4 MG TAB PO PRN (18:56)
[2020-07-31] MEDS ORDERED: Ondansetron PF 4 MG/2 ML Vial IVP PRN (18:56)
[2020-07-31] MEDS ORDERED: Dextrose 50% Abboject 50 ML SYRINGE SLOW IVP PRN (18:56)
[2020-07-31] MEDS ORDERED: Bisacodyl 5 MG TAB PO PRN (18:56)
[2020-07-31] MEDS ORDERED: Acetaminophen 325 MG TAB PO PRN (18:56)
[2020-07-31] MEDS ORDERED: Lactated Ringer's 1,000 ML IV SCH (19:15)
[2020-07-31 19:44] LABS: Lactic Acid 0.9 mmol/L (0.5-2.2)
[2020-07-31 23:56] LABS: SARS-CoV-2 PCR by NAA Not Detected (NotDetected)
[2020-08-01] MEDS: Heparin 5,000 UNITS/ML VIAL SC SCH ×2 (01:10→09:13)
[2020-08-01 02:06] VITALS: BMI 22.1
[2020-08-01 05:19] LABS: #Basophils 0.1 thou/uL (0.0-0.2); #Eosinphils 0.2 thou/uL (0.0-0.7); #Lymphocytes 1.3 thou/uL (1.20-3.40); #Monocytes 0.6 thou/uL (0.11-0.59); #Neutrophils 4.9 thou/uL (1.40-6.50); %Basophils 0.8 % (0.0-1.0); %Eosinophils 2.3 % (0.0-10.0); %Lymphocytes 18.2 % (21.0-51.0); %Monocytes 8.9 % (0.0-10.0); %Neutrophils 69.8 % (42.0-75.0); Hemoglobin 14.2 g/dL (14.0-18.0); Mean Corpuscular HGB CONC 31.6 g/dL (32.0-36.0); Mean Corpuscular Hemoglobin 27.3 pg (27.0-31.0); Mean Corpuscular Volume 86.6 fL (78.0-98.0); Mean Platelet Volume 8.5 fL (7.4-10.4); Platelet Count 143 thou/uL (130-400); RBC Distribution Width 13.5 % (11.5-14.5); Red Blood Cell (RBC) Count 5.21 mill/uL (4.70-6.10); White Blood Cell (WBC) Count 7.1 thou/uL (4.8-10.8)
[2020-08-01 06:10] LABS: ALT (SGPT) 35 U/L (8-55); AST (SGOT) 27 U/L (5-34); Albumin 3.6 g/dL (3.4-4.8); Alkaline Phosphatase 107 U/L (40-110); Anion Gap 13 mmol/L (10-20); BUN (Urea Nitrogen) 21 mg/dL (8.4-25.7); Bilirubin, Total 0.5 mg/dL (0.2-1.2); Calc. Creatinine Clearance 56 mL/min (70-130); Calcium 9.8 mg/dL (7.8-10.44); Carbon Dioxide 24 mmol/L (23-31); Chloride 108 mmol/L (98-107); Globulin 3.7 g/dL (2.4-3.5); Glucose 151 mg/dL (80-115); Potassium 4.8 mmol/L (3.5-5.1); Protein, Total 7.3 g/dL (5.8-8.1); Sodium 140 mmol/L (136-145)
[2020-08-01] MEDS ORDERED: HumaLOG 300 UNITS/3 ML VIAL ONE (07:31)
[2020-08-01] MEDS: HumaLOG 300 UNITS/3 ML VIAL SC PRN ×2 (07:36→11:15)
[2020-08-01] MEDS ORDERED: Enoxaparin Sodium 30 MG/0.3 ML SYRINGE SC SCH (09:00)
[2020-08-01 15:11] VITALS: TEMP 98
[2020-08-01 16:07] VITALS: BP 122/75
== END 2020-08-01 16:13 | disposition home or self-care (01) ==
LOC: ERS 14:55 → ERHOLD 17:00 → INTOOBSV 17:00
PROVIDERS: ADMIT Family Medicine; ATTEND Family Medicine
DX: I95.9 Hypotension, unspecified (principal); I13.0 Hypertensive heart and chronic kidney disease with heart failure and stage 1 through stage 4 chronic kidney disease, or unspecified chronic kidney disease; E11.21 Type 2 diabetes mellitus with diabetic nephropathy; E11.22 Type 2 diabetes mellitus with diabetic chronic kidney disease; N18.2 Chronic kidney disease, stage 2 (mild); I50.42 Chronic combined systolic (congestive) and diastolic (congestive) heart failure; N17.9 Acute kidney failure, unspecified; I69.351 Hemiplegia and hemiparesis following cerebral infarction affecting right dominant side; E78.5 Hyperlipidemia, unspecified; F17.210 Nicotine dependence, cigarettes, uncomplicated; J44.9 Chronic obstructive pulmonary disease, unspecified; Z79.4 Long term (current) use of insulin; Z79.82 Long term (current) use of aspirin; Z79.899 Other long term (current) drug therapy; Z20.822 Contact with and (suspected) exposure to COVID-19
CPT/HCPCS: 71045; 80053 ×2; 82533; 82550; 82962; 83605; 83690; 83880; 84484; 85025 ×2; 85379; 87040; 87086; 93005; 96372; 97116; 99285; G0378 ×2; U0003; U0005; 36415; 36416; 81003; 81015; 87635; J1644; J1815

== ENCOUNTER 2020-08-30 18:57 | Observation (INO) | payer MEDICARE, MEDICAID ==
[2020-08-30 19:45] LABS: #Basophils 0.1 thou/uL (0.0-0.2); #Eosinphils 0.2 thou/uL (0.0-0.7); #Lymphocytes 1.2 thou/uL (1.20-3.40); #Monocytes 0.8 thou/uL (0.11-0.59); #Neutrophils 4.7 thou/uL (1.40-6.50); %Basophils 0.9 % (0.0-1.0); %Eosinophils 3.3 % (0.0-10.0); %Lymphocytes 17.2 % (21.0-51.0); %Monocytes 11.3 % (0.0-10.0); %Neutrophils 67.4 % (42.0-75.0); Hemoglobin 12.7 g/dL (14.0-18.0); Mean Corpuscular HGB CONC 31.9 g/dL (32.0-36.0); Mean Corpuscular Hemoglobin 27.7 pg (27.0-31.0); Mean Corpuscular Volume 86.9 fL (78.0-98.0); Mean Platelet Volume 8.5 fL (7.4-10.4); Platelet Count 147 thou/uL (130-400); RBC Distribution Width 13.2 % (11.5-14.5); White Blood Cell (WBC) Count 6.9 thou/uL (4.8-10.8)
[2020-08-30 20:05] LABS: ALT (SGPT) 41 U/L (8-55); AST (SGOT) 36 U/L (5-34); Albumin 3.7 g/dL (3.4-4.8); Alkaline Phosphatase 92 U/L (40-110); Anion Gap 14 mmol/L (10-20); BUN (Urea Nitrogen) 26 mg/dL (8.4-25.7); Bilirubin, Total 0.5 mg/dL (0.2-1.2); Calc. Creatinine Clearance 0 mL/min (70-130); Calcium 9.8 mg/dL (7.8-10.44); Carbon Dioxide 24 mmol/L (23-31); Chloride 109 mmol/L (98-107); Globulin 3.6 g/dL (2.4-3.5); Glucose 73 mg/dL (80-115); Potassium 4.3 mmol/L (3.5-5.1); Protein, Total 7.3 g/dL (5.8-8.1); Sodium 143 mmol/L (136-145)
[2020-08-31] MEDS ORDERED: HumaLOG 300 UNITS/3 ML VIAL SC PRN ×2 (09:13)
[2020-08-31] MEDS ORDERED: Dextrose 50% Abboject 50 ML SYRINGE SLOW IVP PRN (09:13)
[2020-08-31] MEDS ORDERED: Dextrose 5% in Water 1,000 ML IV PRN (09:13)
[2020-08-31 09:23] LABS: #Basophils 0.1 thou/uL (0.0-0.2); #Eosinphils 0.2 thou/uL (0.0-0.7); #Lymphocytes 1.7 thou/uL (1.20-3.40); #Monocytes 0.4 thou/uL (0.11-0.59); #Neutrophils 2.4 thou/uL (1.40-6.50); %Basophils 1.2 % (0.0-1.0); %Eosinophils 3.9 % (0.0-10.0); %Lymphocytes 34.9 % (21.0-51.0); %Monocytes 8.4 % (0.0-10.0); %Neutrophils 51.7 % (42.0-75.0); Hemoglobin 11.8 g/dL (14.0-18.0); Mean Corpuscular HGB CONC 31.4 g/dL (32.0-36.0); Mean Corpuscular Hemoglobin 27.5 pg (27.0-31.0); Mean Corpuscular Volume 87.6 fL (78.0-98.0); Mean Platelet Volume 8.3 fL (7.4-10.4); Platelet Count 140 thou/uL (130-400); RBC Distribution Width 13.3 % (11.5-14.5); Red Blood Cell (RBC) Count 4.31 mill/uL (4.70-6.10); White Blood Cell (WBC) Count 4.7 thou/uL (4.8-10.8)
[2020-08-31 09:46] LABS: Anion Gap 11 mmol/L (10-20); BUN (Urea Nitrogen) 27 mg/dL (8.4-25.7); Calc. Creatinine Clearance 0 mL/min (70-130); Calcium 9.4 mg/dL (7.8-10.44); Carbon Dioxide 25 mmol/L (23-31); Chloride 108 mmol/L (98-107); Glucose 327 mg/dL (80-115); Potassium 4.7 mmol/L (3.5-5.1); Sodium 139 mmol/L (136-145)
[2020-08-31 11:41] VITALS: TEMP 97.8
[2020-08-31 11:41] LABS: SARS-CoV-2 PCR by NAA Not Detected (NotDetected)
[2020-08-31] MEDS ORDERED: HumaLOG 300 UNITS/3 ML VIAL ONE (12:03)
[2020-08-31] MEDS ORDERED: Sodium Chloride 0.9% 1,000 ML IV SCH (13:45)
[2020-08-31 15:21] VITALS: BP 150/99
== END 2020-08-31 16:00 | disposition home or self-care (01) ==
LOC: ERS 18:57 → ERHOLD 22:52
PROVIDERS: ADMIT Student in an Organized Health Care Education/Training Program; ATTEND Hospitalist
DX: N17.9 Acute kidney failure, unspecified (principal); I95.1 Orthostatic hypotension; I12.9 Hypertensive chronic kidney disease with stage 1 through stage 4 chronic kidney disease, or unspecified chronic kidney disease; E11.22 Type 2 diabetes mellitus with diabetic chronic kidney disease; N18.30 Chronic kidney disease, stage 3 unspecified; E11.21 Type 2 diabetes mellitus with diabetic nephropathy; E78.5 Hyperlipidemia, unspecified; J44.9 Chronic obstructive pulmonary disease, unspecified; I69.951 Hemiplegia and hemiparesis following unspecified cerebrovascular disease affecting right dominant side; F17.210 Nicotine dependence, cigarettes, uncomplicated; Z20.822 Contact with and (suspected) exposure to COVID-19; Z79.4 Long term (current) use of insulin; Z79.82 Long term (current) use of aspirin; Z79.899 Other long term (current) drug therapy
CPT/HCPCS: 80048; 80053; 82962; 84484; 85025 ×2; 93005; 99285; U0003; U0005; 36415; 36416; G0378; J1815

== ENCOUNTER 2020-12-14 18:49 | Emergency (ER) | payer MEDICARE, MEDICAID ==
[2020-12-14 19:28] LABS: #Eosinphils 0.1 thou/uL (0.0-0.7); #Lymphocytes 1.6 thou/uL (1.20-3.40); #Monocytes 0.5 thou/uL (0.11-0.59); #Neutrophils 6.2 thou/uL (1.40-6.50); %Basophils 0.6 % (0.0-1.0); %Eosinophils 0.9 % (0.0-10.0); %Lymphocytes 18.7 % (21.0-51.0); %Monocytes 5.7 % (0.0-10.0); %Neutrophils 74.2 % (42.0-75.0); Hemoglobin 12.7 g/dL (14.0-18.0); Mean Corpuscular HGB CONC 33.3 g/dL (32.0-36.0); Mean Corpuscular Hemoglobin 28.7 pg (27.0-31.0); Mean Corpuscular Volume 86.1 fL (78.0-98.0); Mean Platelet Volume 9.5 fL (7.4-10.4); Platelet Count 178 thou/uL (130-400); Red Blood Cell (RBC) Count 4.44 mill/uL (4.70-6.10); White Blood Cell (WBC) Count 8.3 thou/uL (4.8-10.8)
[2020-12-14] MEDS ORDERED: Dextrose 50% Abboject 50 ML SYRINGE ONE (19:39)
[2020-12-14 19:47] LABS: ALT (SGPT) 40 U/L (8-55); AST (SGOT) 39 U/L (5-34); Albumin 3.7 g/dL (3.4-4.8); Alkaline Phosphatase 136 U/L (40-110); Anion Gap 14 mmol/L (10-20); BUN (Urea Nitrogen) 21 mg/dL (8.4-25.7); Bilirubin, Total 0.4 mg/dL (0.2-1.2); Calc. Creatinine Clearance 0 mL/min (70-130); Calcium 10.4 mg/dL (7.8-10.44); Carbon Dioxide 28 mmol/L (23-31); Chloride 101 mmol/L (98-107); Globulin 4.2 g/dL (2.4-3.5); Glucose 119 mg/dL (80-115); Potassium 4.7 mmol/L (3.5-5.1); Protein, Total 7.9 g/dL (5.8-8.1); Sodium 138 mmol/L (136-145)
== END 2020-12-14 22:38 | disposition home or self-care (01) ==
LOC: ERS 18:49
DX: E11.649 Type 2 diabetes mellitus with hypoglycemia without coma (principal); T38.3X5A Adverse effect of insulin and oral hypoglycemic [antidiabetic] drugs, initial encounter; J44.9 Chronic obstructive pulmonary disease, unspecified; I10 Essential (primary) hypertension; E78.5 Hyperlipidemia, unspecified; F17.210 Nicotine dependence, cigarettes, uncomplicated; Z86.73 Personal history of transient ischemic attack (TIA), and cerebral infarction without residual deficits; Z79.4 Long term (current) use of insulin
CPT/HCPCS: 36416; 80053; 85025; 99285

== ENCOUNTER 2021-08-04 19:45 | Observation (INO) | payer MEDICARE, MEDICAID ==
[~2021-08-04 19:45] MED LIST: Iopamidol 370 76% 100 ML VIAL ONE
[2021-08-04] MEDS ORDERED: Naloxone HCl 0.4 mg/ml Vial ONE (20:21)
[2021-08-04 20:24] LABS: #Lymphocytes 0.7 thou/uL (1.20-3.40); #Monocytes 0.3 thou/uL (0.11-0.59); #Neutrophils 2.6 thou/uL (1.40-6.50); %Basophils 1.1 % (0.0-1.0); %Eosinophils 1.2 % (0.0-10.0); %Lymphocytes 19.2 % (21.0-51.0); %Monocytes 8.5 % (0.0-10.0); %Neutrophils 70.1 % (42.0-75.0); Hemoglobin 11.7 g/dL (14.0-18.0); Mean Corpuscular HGB CONC 30.6 g/dL (32.0-36.0); Mean Corpuscular Hemoglobin 26.5 pg (27.0-31.0); Mean Corpuscular Volume 86.3 fL (78.0-98.0); Mean Platelet Volume 8.2 fL (7.4-10.4); Platelet Count 164 thou/uL (130-400); RBC Distribution Width 12.8 % (11.5-14.5); Red Blood Cell (RBC) Count 4.43 mill/uL (4.70-6.10); White Blood Cell (WBC) Count 3.7 thou/uL (4.8-10.8)
[2021-08-04 20:47] LABS: Acetaminophen Less than 10.0 mcg/mL (10.0-30.0); Alcohol Less than 10 mg/dL (Less than 10); Salicylate Less than 8.0 mg/dL (15.0-30.0)
[2021-08-04 20:48] LABS: ALT (SGPT) 26 U/L (8-55); AST (SGOT) 39 U/L (5-34); Albumin 3.4 g/dL (3.4-4.8); Alkaline Phosphatase 113 U/L (40-110); Anion Gap 10 mmol/L (10-20); BUN (Urea Nitrogen) 27 mg/dL (8.4-25.7); Bilirubin, Total 0.4 mg/dL (0.2-1.2); CK (CPK) 186 U/L (30-200); Calc. Creatinine Clearance 0 mL/min (70-130); Calcium 9.1 mg/dL (7.8-10.44); Carbon Dioxide 23 mmol/L (23-31); Chloride 110 mmol/L (98-107); Globulin 3.5 g/dL (2.4-3.5); Protein, Total 6.9 g/dL (5.8-8.1); Sodium 139 mmol/L (136-145)
[2021-08-04 20:54] LABS: Glucose 50 mg/dL (80-115)
[2021-08-04 21:17] LABS: Bacteria/HPF None Seen HPF (None Seen); Bilirubin Negative (Negative); Blood, Urine Negative (Negative); Clarity Clear (Clear); Glucose, Urine (Dipstick) 500 mg/dL (Negative); Ketone, Urine Negative (Negative); Leukocyte 25 Leu/uL (Negative); Mucous/LPF Rare LPF (<2+); Nitrite Negative (Negative); Protein, Urine (Dipstick) 30 mg/dL (Neg-Trace); RBC/HPF 0-3 HPF (0-3); Specific Gravity, Urine 1.014 (1.002-1.036); Squamous Epithelial 0-3 HPF (0-3); Urobilinogen Normal mg/dL (Less than 2); WBC/HPF 0-3 HPF (0-3)
[2021-08-04 21:22] LABS: Amphetamine Detected (NotDetected); Barbiturates Screen Not Detected (NotDetected); Benzodiazepine Screen Not Detected (NotDetected); Cocaine Metabolite Screen Detected (NotDetected); Methadone Not Detected (NotDetected); Methamphetamine Detected (NotDetected); Opiate Screen Not Detected (NotDetected); Oxycodone Screen Not Detected (NotDetected); Phencyclidine (PCP) Not Detected (NotDetected); THC/Cannabinoid Screen Not Detected (NotDetected); Tricyclic Screen Not Detected (NotDetected)
[2021-08-05] MEDS ORDERED: VANCOMYCIN 1.75 GM/350 ML BAG IVPB SCH (00:10)
[2021-08-05 00:39] VITALS: BMI 20.5
[2021-08-05] MEDS ORDERED: Sodium Chloride 0.9% 1,000 ML IV SCH (00:45)
[2021-08-05] MEDS ORDERED: Piperacillin/Tazobactam 3.375 GM in Sodium Chloride 0.9% 100 ML IVPB SCH (01:00)
[2021-08-05 01:13] LABS: #Lymphocytes 1.1 thou/uL (1.20-3.40); #Monocytes 0.4 thou/uL (0.11-0.59); #Neutrophils 3.3 thou/uL (1.40-6.50); %Basophils 0.5 % (0.0-1.0); %Eosinophils 0.8 % (0.0-10.0); %Monocytes 8.1 % (0.0-10.0); %Neutrophils 68.6 % (42.0-75.0); Hemoglobin 11.9 g/dL (14.0-18.0); Mean Corpuscular HGB CONC 30.4 g/dL (32.0-36.0); Mean Corpuscular Hemoglobin 26.9 pg (27.0-31.0); Mean Corpuscular Volume 88.6 fL (78.0-98.0); Mean Platelet Volume 9.1 fL (7.4-10.4); Platelet Count 177 thou/uL (130-400); RBC Distribution Width 13.2 % (11.5-14.5); Red Blood Cell (RBC) Count 4.42 mill/uL (4.70-6.10); White Blood Cell (WBC) Count 4.8 thou/uL (4.8-10.8)
[2021-08-05 01:31] LABS: Lactic Acid 0.8 mmol/L (0.5-2.2)
[2021-08-05] MEDS ORDERED: Ondansetron ODT 4 MG TAB PO PRN (01:34)
[2021-08-05] MEDS ORDERED: Acetaminophen 325 MG TAB PO PRN (01:34)
[2021-08-05] MEDS ORDERED: Dextrose 50% Abboject 50 ML SYRINGE SLOW IVP PRN (01:34)
[2021-08-05] MEDS ORDERED: Ondansetron PF 4 MG/2 ML Vial IVP PRN (01:34)
[2021-08-05] MEDS ORDERED: Dextrose 5% in Water 1,000 ML IV PRN (01:34)
[2021-08-05] MEDS ORDERED: VANCOMYCIN 1.25 GM/250 ML BAG 1.25 GM in Premix Bag 1 BAG IVPB SCH (02:00)
[2021-08-05] MEDS ORDERED: Dextrose 10% in Water 1,000 ML IV SCH (02:45)
[2021-08-05] MEDS: Piperacillin/Tazobactam 3.375 GM in Sodium Chloride 0.9% 100 ML IVPB SCH ×2 (06:24→14:07)
[2021-08-05 07:34] LABS: #Monocytes 0.3 thou/uL (0.11-0.59); #Neutrophils 3.5 thou/uL (1.40-6.50); %Eosinophils 0.5 % (0.0-10.0); %Lymphocytes 21.3 % (21.0-51.0); %Monocytes 5.9 % (0.0-10.0); %Neutrophils 72.3 % (42.0-75.0); Hemoglobin 10.9 g/dL (14.0-18.0); Mean Corpuscular HGB CONC 31.4 g/dL (32.0-36.0); Mean Corpuscular Hemoglobin 26.9 pg (27.0-31.0); Mean Corpuscular Volume 85.7 fL (78.0-98.0); Mean Platelet Volume 7.9 fL (7.4-10.4); Platelet Count 171 thou/uL (130-400); RBC Distribution Width 12.6 % (11.5-14.5); Red Blood Cell (RBC) Count 4.07 mill/uL (4.70-6.10); White Blood Cell (WBC) Count 4.9 thou/uL (4.8-10.8)
[2021-08-05 07:37] LABS: Hemoglobin A1c Greater than 14.0 % (4.0-6.0)
[2021-08-05 07:50] LABS: Anion Gap 6 mmol/L (10-20); BUN (Urea Nitrogen) 18 mg/dL (8.4-25.7); Calc. Creatinine Clearance 84 mL/min (70-130); Calcium 8.8 mg/dL (7.8-10.44); Carbon Dioxide 26 mmol/L (23-31); Chloride 108 mmol/L (98-107); Glucose 89 mg/dL (80-115); Potassium 3.9 mmol/L (3.5-5.1); Sodium 136 mmol/L (136-145)
[2021-08-05 11:25] LABS: SARS-CoV-2 PCR by NAA Not Detected (NotDetected)
[2021-08-05] MEDS ORDERED: Vancomycin 1 GM in Premix Bag 1 BAG IVPB SCH (12:00)
[2021-08-05] MEDS ORDERED: Insulin Glargine 30 UNITS/0.3 ML VIAL SC SCH (17:00)
[2021-08-05] MEDS: HumaLOG 300 UNITS/3 ML VIAL SC PRN ×2 (17:26→18:33)
[2021-08-05] MEDS: Insulin Glargine 30 UNITS/0.3 ML VIAL SC SCH (18:16)
[2021-08-05] MEDS ORDERED: HumaLOG 300 UNITS/3 ML VIAL SC SCH (19:45)
[2021-08-06] MEDS: HumaLOG 300 UNITS/3 ML VIAL SC SCH ×2 (08:00→12:23)
[2021-08-06] MEDS: Insulin Glargine 30 UNITS/0.3 ML VIAL SC SCH (10:00)
[2021-08-06 12:29] VITALS: BP 156/93; TEMP 98.7
== END 2021-08-06 14:03 | disposition home or self-care (01) ==
LOC: ERS 19:45 → T4-B 22:02
PROVIDERS: ADMIT Family Medicine; ATTEND Family Medicine
DX: E11.649 Type 2 diabetes mellitus with hypoglycemia without coma (principal); T40.5X1A Poisoning by cocaine, accidental (unintentional), initial encounter; G92.8 Other toxic encephalopathy; F14.10 Cocaine abuse, uncomplicated; F15.10 Other stimulant abuse, uncomplicated; S90.31XA Contusion of right foot, initial encounter; H40.9 Unspecified glaucoma; I10 Essential (primary) hypertension; E78.5 Hyperlipidemia, unspecified; J44.9 Chronic obstructive pulmonary disease, unspecified; D64.9 Anemia, unspecified; F17.210 Nicotine dependence, cigarettes, uncomplicated; Z86.73 Personal history of transient ischemic attack (TIA), and cerebral infarction without residual deficits; Z91.19 Patient's noncompliance with other medical treatment and regimen; Z79.4 Long term (current) use of insulin; Z79.84 Long term (current) use of oral hypoglycemic drugs; Z79.899 Other long term (current) drug therapy; Z98.1 Arthrodesis status; Z20.822 Contact with and (suspected) exposure to COVID-19
CPT/HCPCS: 70450; 73701; 80048; 80053; 80306; 80307; 82550; 82962 ×3; 83036; 83605 ×2; 83880; 84484; 85025 ×3; 85652; 86140; 93005; 96374; 99285; J3370; U0003; U0005; 36415; 36416; 81003; 81015; 96365; 96375; 96376; G0378; J1815; J2310; J2543; J3490; J7050; Q9967

== ENCOUNTER 2021-11-02 14:27 | Emergency (ER) | payer OTHER, MEDICAID ==
[2021-11-02 17:34] LABS: #Eosinphils 0.1 thou/uL (0.0-0.7); #Lymphocytes 1.3 thou/uL (1.20-3.40); #Monocytes 0.4 thou/uL (0.11-0.59); #Neutrophils 2.6 thou/uL (1.40-6.50); %Basophils 0.8 % (0.0-1.0); %Eosinophils 1.9 % (0.0-10.0); %Lymphocytes 29.4 % (21.0-51.0); %Monocytes 9.4 % (0.0-10.0); %Neutrophils 58.5 % (42.0-75.0); Hemoglobin 12.7 g/dL (14.0-18.0); Mean Corpuscular HGB CONC 32.6 g/dL (32.0-36.0); Mean Corpuscular Hemoglobin 26.7 pg (27.0-31.0); Platelet Count 171 thou/uL (130-400); RBC Distribution Width 13.5 % (11.5-14.5); Red Blood Cell (RBC) Count 4.78 mill/uL (4.70-6.10); White Blood Cell (WBC) Count 4.4 thou/uL (4.8-10.8)
[2021-11-02 17:41] LABS: Prothrombin Time 12.8 sec (12.0-14.7)
[2021-11-02 17:42] LABS: PTT 31.5 sec (22.9-36.1)
[2021-11-02 17:50] LABS: Acetaminophen Less than 10.0 mcg/mL (10.0-30.0); Alcohol Less than 10 mg/dL (Less than 10); Salicylate Less than 8.0 mg/dL (15.0-30.0)
[2021-11-02 17:52] LABS: ALT (SGPT) 29 U/L (8-55); AST (SGOT) 42 U/L (5-34); Albumin 4.1 g/dL (3.4-4.8); Alkaline Phosphatase 148 U/L (40-110); Anion Gap 16 mmol/L (10-20); BUN (Urea Nitrogen) 21 mg/dL (8.4-25.7); Bilirubin, Total 0.8 mg/dL (0.2-1.2); Calc. Creatinine Clearance 0 mL/min (70-130); Calcium 10.6 mg/dL (7.8-10.44); Carbon Dioxide 26 mmol/L (23-31); Chloride 99 mmol/L (98-107); Estimated GFR 61; Globulin 4.3 g/dL (2.4-3.5); Glucose 337 mg/dL (80-115); Potassium 5.4 mmol/L (3.5-5.1); Protein, Total 8.4 g/dL (5.8-8.1); Sodium 136 mmol/L (136-145)
[2021-11-02 18:24] LABS: Bilirubin Negative (Negative); Blood, Urine Negative (Negative); Clarity Clear (Clear); Glucose, Urine (Dipstick) Greater than 1000 mg/dL (Negative); Ketone, Urine Negative (Negative); Leukocyte Negative Leu/uL (Negative); Nitrite Negative (Negative); Protein, Urine (Dipstick) 20 mg/dL (Neg-Trace); Specific Gravity, Urine 1.023 (1.002-1.036); Urobilinogen Normal mg/dL (Less than 2); pH, Urine 7.5 (5.0-9.0)
[2021-11-02 18:32] LABS: Amphetamine Detected (NotDetected); Barbiturates Screen Not Detected (NotDetected); Benzodiazepine Screen Not Detected (NotDetected); Cocaine Metabolite Screen Detected (NotDetected); Methadone Not Detected (NotDetected); Methamphetamine Detected (NotDetected); Opiate Screen Not Detected (NotDetected); Oxycodone Screen Not Detected (NotDetected); Phencyclidine (PCP) Not Detected (NotDetected); THC/Cannabinoid Screen Not Detected (NotDetected); Tricyclic Screen Not Detected (NotDetected)
== END 2021-11-02 20:07 | disposition home or self-care (01) ==
LOC: ERS 14:27
DX: R55 Syncope and collapse (principal); R94.31 Abnormal electrocardiogram [ECG] [EKG]; I10 Essential (primary) hypertension; E11.9 Type 2 diabetes mellitus without complications; E78.5 Hyperlipidemia, unspecified; F17.210 Nicotine dependence, cigarettes, uncomplicated; J44.9 Chronic obstructive pulmonary disease, unspecified; Z79.4 Long term (current) use of insulin; Z86.73 Personal history of transient ischemic attack (TIA), and cerebral infarction without residual deficits
CPT/HCPCS: 36415; 70450; 71045; 80053; 80306; 80307; 81003; 83605; 84484; 85025; 85610; 85730; 93005; 94760